=== PATIENT | female | born 1935 | race Caucasian/White ===

== ENCOUNTER 2018-11-07 09:21 | Inpatient (IN) | payer MEDICARE, OTHER ==
[2018-11-07] VITALS (8 sets, daily range): BP systolic 115–127; BP diastolic 44–79; BMI 17.8
[~2018-11-07] VITALS: Ht 152.4 cm; Wt 41.3 kg
[~2018-11-07 09:21] MED LIST: ADALAT PO; ASPIRIN EC81 M1 PO; CALTRATE 600 M600 M1 PO; HYDROCHLOROTHIA25 MG PO; MAG-OXIDE400 MG PO; VITAMIN D PO; ZOCOR20 MG PO
[2018-11-07 10:02] LABS: HEMATOCRIT 40.9 % (36.0-48.0); MCH 34.8 pg (26.0-34.0); MCHC 34.2 g/dL (31.0-37.0); MCV 101.7 fL (80.0-100.0); MEAN PLATELET VOLUME 10.1 fL (7.4-10.4); PLATELET COUNT 273 10x3/uL (130-400); RBC 4.02 10x6/uL (4.00-5.40); RDW 12.9 % (11.5-14.5); WBC 22.1 10x3/uL (4.8-10.8)
[2018-11-07 10:10] LABS: APTT 29.2 SECONDS (22.8-39.4); INR 1.02 (0.85-1.17); PROTIME 12.9 SECONDS (11.6-15.0)
[2018-11-07 10:17] LABS: LYMPHOCYTES 7 % (15-50); MONOCYTES 8 % (2-11); NEUTROPHILS 82 % (40-80); PLATELET ESTIMATE NORMAL
[2018-11-07 10:19] LABS: ALBUMIN 3.6 g/dL (3.4-5.0); ANION GAP 13.3 mmol/L (8-16); BILIRUBIN - TOTAL 0.55 mg/dL (0.2-1.3); CALCIUM 9.1 mg/dL (8.5-10.1); CARBON DIOXIDE 29.4 mmol/L (21.0-32.0); CREATININE - SERUM 0.9 mg/dL (0.6-1.3); POTASSIUM - SERUM 3.7 mmol/L (3.5-5.1)
[2018-11-07 10:41] LABS: APPEARANCE CLEAR (CLEAR); BILIRUBIN NEGATIVE (NEGATIVE); COLOR YELLOW (YELLOW); GLUCOSE NEGATIVE (NEGATIVE); KETONE NEGATIVE (NEGATIVE); NITRITE NEGATIVE (NEGATIVE); PROTEIN NEGATIVE (NEGATIVE); UROBILINOGEN NORMAL (NORMAL)
[2018-11-07 10:42] LABS: BACTERIA FEW /hpf (NONE SEEN); EPITHELIAL CELLS 0-5 /hpf (0-5); RED CELLS - URINE 0-5 /hpf (0-5); WHITE CELLS - URINE 0-5 /hpf (0-5)
--- NOTE | 2018-11-07 13:32 | MORECARE ---
CASE MANAGEMENT DISCHARGE SUMMARY PATIENT: ARIAS PEDRO MORIAH UNIT: [id number] ADM DATE: 11/07/18 AGE: 83 : 36 SEX: F ROOM/BED: D.2216 AUTHOR: LEROY,DOC PHYSICIAN: REFERRING PHYSICIAN: JESUS PRUITT MD DATE OF SERVICE: 11/07/18 Discharge Plan Patient Name: ARIAS PEDRO Facility: [facility]:[place] : 1935 Planned Disposition: Anticipated Discharge Date: 11/12/18 Discharge Date: Expected LOS: 5 Initial Reviewer: [email or web address] Initial Review Date: 11/07/2018 Generated: 11/07/18 2:32 pm DCP- Discharge Planning Updated by [email or web address]: Renea Cage on 11/07/18 12:[address] Patient Name: ARIAS PEDRO Admission Status: ER Accout number: [id number] Admission Date: 11-07-2018 : 1935 Admission Diagnosis: Attending: JESUS PRUITT Current LOS: 1 Anticipated DC Date: 11-12-2018 Planned Disposition: Primary Insurance: MEDICARE A & B Discharge Planning Comments: CM met with patient to complete initial dc planning assessment. CM educated patient on the CM role and verbal consent given by patient to complete assessment. Patient lives at home with her . She reports she is independent in her ADL's and IADL's. At discharge patient plans to return home with her and feels this is a safe discharge. CM discussed availability of home health, rehab services, and medical equipment. Patient denied known discharge needs at this time. CM will continue to follow and will assist as needed with dc plans/needs. Lead Sewage Plant Operator: Renea Cage RN, [facility] DCPIA - Discharge Planning Initial Assessment Updated by [email or web address]: Renea Cage on 11/07/18 1:31 pm * Is the patient Alert and Oriented? Yes * How many steps to enter\exit or inside your home? * PCP Dr. Pete * Pharmacy [facility] [address] * Preadmission Environment Home with Family * ADLs Independent * Equipment Walker * List name and contact numbers for known caregivers / representatives who currently or will assist patient after discharge: Vicente Pedro - spouse - [phone] * Verbal permission to speak to the caregivers and representatives has been obtained from the patient. Yes * Community resources currently utilized None * Additional services required to return to the preadmission environment? No * Can the patient safely return to the preadmission environment? Yes * Has this patient been hospitalized within the prior 30 days at any hospital? No Patient Name: ARIAS PEDRO Page 14815 at 1332 All edits/amendments must be made on the electronic document DICTATION DATE: 11/07/181331 CLIENT SERVICES ADMINISTRATOR: VIC 11/07/181331 RPT#: [id number] DC DATE: STATUS: ADM IN [facility] [address] [place] [address] END OF REPORT
--- NOTE | 2018-11-07 14:01 | NUR ---
NORMAL SALINE INFUSING ON TRANSFER TO OPERATING ROOM.
--- NOTE | 2018-11-07 20:00 | NUR ---
ALERT RESTING IN BED RESP UNLABORED DENIES PAIN AT THIS TIME BENITES CATH DRAING YELLOW URINE DRESSING TO LEFT HIP D/I CALL LIGHT IN REACH
[2018-11-08] VITALS: BP 126/52
[2018-11-08 00:02] VITALS: BP 136/72
[2018-11-08 05:07] LABS: BASOPHILS 0 % (0-2); EOSINOPHILS 0.4 % (0-7); IMMATURE GRANULOCYTES 0.1 % (0-5); LYMPHOCYTES 22.5 % (15-50); MCH 34.8 pg (26.0-34.0); MCHC 33.7 g/dL (31.0-37.0); MCV 103.4 fL (80.0-100.0); MEAN PLATELET VOLUME 9.6 fL (7.4-10.4); RDW 13.2 % (11.5-14.5)
[2018-11-08 05:20] LABS: HEMATOCRIT 27.6 % (36.0-48.0); HEMOGLOBIN 9.3 g/dL (12-16); PLATELET COUNT 176 10x3/uL (130-400); RBC 2.67 10x6/uL (4.00-5.40); WBC 7.3 10x3/uL (4.8-10.8)
[2018-11-08 05:36] LABS: CALC OSMOLALITY 276 mosm/kg (275-300); CALCIUM 7.3 mg/dL (8.5-10.1); CARBON DIOXIDE 29.6 mmol/L (21.0-32.0); CHLORIDE - SERUM 103 mmol/L (98-107); CREATININE - SERUM 0.7 mg/dL (0.6-1.3); GLUCOSE 92 mg/dL (74-106); POTASSIUM - SERUM 3.7 mmol/L (3.5-5.1); SODIUM 138 mmol/L (136-145); UREA NITROGEN 16 mg/dL (7-18); eGFR NON AFRICAN AMERICAN 85 mL/min (90-120)
--- NOTE | 2018-11-08 07:00 | NUR ---
BUILDING WRECKER COMPLETE. PT LYING IN BED. NO SIGNS OF DISTRESS. DENIES NEEEDS
[2018-11-08 09:18] VITALS: BP 136/51
[2018-11-08 11:52] VITALS: BP 140/60
--- NOTE | 2018-11-08 12:23 | NUR ---
PT LYING IN BED WITH FAMILY ON BEDSIDE, NO S/S OF DISTRESS, BED IN LOW POSITION, CL IN REACH, CONTINUE WITH PLAN OF CARE
[2018-11-08 12:48] VITALS: Ht 152.4 cm; Wt 41.3 kg
[2018-11-08 16:29] VITALS: BP 142/53
[2018-11-08 20:00] VITALS: BP 122/52
--- NOTE | 2018-11-08 20:00 | NUR ---
ASSESSMENT PER FLOWSHEET. IV PATENT RT ARM OF NS AT 100CC'S/HR SITE CLEAR. DRESSINGX2 TO LEFT HIP C/D/I. BENITES TO BEDSIDE DRAINAGE WITH YELLOW URINE.
--- NOTE | 2018-11-08 21:00 | NUR ---
MEDS PER MAR.
--- NOTE | 2018-11-09 | NUR ---
REPOSITIONED IN BED SR UP X2 CALL LIGHT WITHIN REACH.
--- NOTE | 2018-11-09 03:18 | NUR ---
C/O PAIN IN INCISIONAL AREA DOES NOT USUALLY TAKE MORPHINE REQUESTING TYLENOL. TYLENOL 650MG PO GIVEN FOR PAIN CONTROL. REPOSITIONED IN BED WITH CALL LIGHT WITHIN REACH.
[2018-11-09 04:00] VITALS: BP 110/52
--- NOTE | 2018-11-09 04:27 | NUR ---
EYES CLOSED RESPIRATIONS WITH EASE AND UNLABORED.
[2018-11-09 05:31] LABS: HEMATOCRIT 22.7 % (36.0-48.0); HEMOGLOBIN 7.8 g/dL (12-16); MCH 34.8 pg (26.0-34.0); MCHC 34.4 g/dL (31.0-37.0); RBC 2.24 10x6/uL (4.00-5.40); RDW 12.8 % (11.5-14.5); WBC 8.7 10x3/uL (4.8-10.8)
[2018-11-09 05:57] LABS: CALCIUM 7.5 mg/dL (8.5-10.1); CARBON DIOXIDE 28.5 mmol/L (21.0-32.0); CHLORIDE - SERUM 104 mmol/L (98-107); GLUCOSE 103 mg/dL (74-106); POTASSIUM - SERUM 3.3 mmol/L (3.5-5.1); SODIUM 138 mmol/L (136-145)
[2018-11-09 06:00] LABS: CALC OSMOLALITY 273 mosm/kg (275-300); CREATININE - SERUM 0.5 mg/dL (0.6-1.3); MCV 101.3 fL (80.0-100.0); PLATELET COUNT 139 10x3/uL (130-400); UREA NITROGEN 8 mg/dL (7-18); eGFR NON AFRICAN AMERICAN > 90 mL/min (90-120)
--- NOTE | 2018-11-09 07:45 | NUR ---
PATIENT IN BED WITH NO COMPLAINTS OR SIGNS OF DISTRESS. IV INTACT. EYES CLOSED RESTING QUIETLY. CALL LIGHT WITHIN REACH.
[2018-11-09 08:08] LABS: EOSINOPHILS 1 % (0-7); HYPOCHROMASIA OCC; LYMPHOCYTES 20 % (15-50); MONOCYTES 21 % (2-11); NEUTROPHILS 57 % (40-80); PLATELET ESTIMATE NORMAL
[2018-11-09 08:28] VITALS: BP 120/48
--- NOTE | 2018-11-09 11:19 | NUR ---
PT STATED SHE IS COUGHING UP YELLOW GUNK, ORDERED CHEST XRAY AND SPUTUM CULTURE
[2018-11-09 11:55] VITALS: BP 103/67
[2018-11-09 16:58] VITALS: BP 134/59
--- NOTE | 2018-11-09 18:54 | NUR ---
PT COMPLETED BLOOD TRANSFUSIONS WITH NO COMPLICATIONS, BED IN LOW POSITION, CL IN REACH PT DID GET UP TO CHAIR WITH PT. DISCONNECTED PT FROM IV, WILL CONTINUE WITH PLAN OF CARE
[2018-11-09 20:00] VITALS: BP 124/47
--- NOTE | 2018-11-09 20:00 | NUR ---
ASSESMENT PER FLOWSHEET. IV PATENT LT ARM OF NS AT 100CC'S/HR BENITES TO BEDSIDE DRAINAGE WITH YELLOW URINE. DRESSING TO LEFT HIP X2 C/D/I. O2 ON AT 2L/M PER NC. ESAU MAT ON SR UP X2 CALL LIGHT WITHIN REACH.
--- NOTE | 2018-11-09 21:00 | NUR ---
MEDS GIVEN PER MAR.
--- NOTE | 2018-11-09 22:30 | NUR ---
REPOSITIONED IN BED SR UPX2 CALL LIGHT WITHIN REACH DENIES NEEDS.
[2018-11-10] VITALS: BP 116/49
--- NOTE | 2018-11-10 | NUR ---
EYES CLOSED REPOSITIONED IN BED DENIES NEEDS.
--- NOTE | 2018-11-10 02:30 | NUR ---
RESING QUIETLY NO CHANGES IN ASSESSMENT.
[2018-11-10 04:00] VITALS: BP 131/60
[2018-11-10 06:06] LABS: CALC OSMOLALITY 282 mosm/kg (275-300); CALCIUM 7.6 mg/dL (8.5-10.1); CARBON DIOXIDE 31.4 mmol/L (21.0-32.0); CHLORIDE - SERUM 106 mmol/L (98-107); CREATININE - SERUM 0.5 mg/dL (0.6-1.3); GLUCOSE 110 mg/dL (74-106); SODIUM 142 mmol/L (136-145); UREA NITROGEN 9 mg/dL (7-18); eGFR NON AFRICAN AMERICAN > 90 mL/min (90-120)
[2018-11-10 06:20] LABS: BASOPHILS 0.1 % (0-2); EOSINOPHILS 1.1 % (0-7); IMMATURE GRANULOCYTES 0.4 % (0-5); LYMPHOCYTES 13.2 % (15-50); MCH 32.3 pg (26.0-34.0); MCHC 34.4 g/dL (31.0-37.0); MEAN PLATELET VOLUME 10.3 fL (7.4-10.4); MONOCYTES 16.5 % (2-11); NEUTROPHILS 68.7 % (40-80); PLATELET COUNT 120 10x3/uL (130-400); RDW 17.3 % (11.5-14.5); WBC 9.6 10x3/uL (4.8-10.8)
[2018-11-10 06:23] LABS: MCV 93.8 fL (80.0-100.0); RBC 3.41 10x6/uL (4.00-5.40)
--- NOTE | 2018-11-10 09:32 | NUR ---
PT ALERT X 4. BREATH SOUNDS CLEAR BILAT, 2L O2 PER NC. IV TO LEFT FOREARM, PATENT, DRESSING CLEAN DRY AND INTACT. BENITES IN PLACE, URINE YELLOW AND CLEAR. PT REPORTING SLIGHT DISCOMFORT TO BACK FROM BED, NO MEDS NEEDED AT THIS TIME. BED LOW, CALL LIGHT IN REACH. NO OTHER NEEDS AT THIS TIME.
[2018-11-10 10:04] VITALS: BP 126/54
--- NOTE | 2018-11-10 12:15 | NUR ---
Rehab Note- Acute Inpatient Rehab prescreen order received. Visited with the patient and her spouse. She would like a short stay, explained the difference in an acute inpatient facility and a SNF. Spoke with KIT Nielsen. Will accept the patient to [facility] Acute Inpatient Rehab when medically stable and ready for discharge from the acute hospital. WIll follow at this time. THank you for this referral! Nasrin Lenz RN Clinical Liaison, [facility] Rehab
[2018-11-10 17:34] VITALS: BP 143/63
[2018-11-10 20:54] VITALS: BP 127/48
[2018-11-11 06:41] LABS: CALC OSMOLALITY 277 mosm/kg (275-300); CALCIUM 8.1 mg/dL (8.5-10.1); CARBON DIOXIDE 31.2 mmol/L (21.0-32.0); CHLORIDE - SERUM 102 mmol/L (98-107); CREATININE - SERUM 0.6 mg/dL (0.6-1.3); GLUCOSE 101 mg/dL (74-106); POTASSIUM - SERUM 4.1 mmol/L (3.5-5.1); SODIUM 140 mmol/L (136-145); UREA NITROGEN 11 mg/dL (7-18); eGFR NON AFRICAN AMERICAN > 90 mL/min (90-120)
[2018-11-11 07:17] LABS: BASOPHILS 0 % (0-2); EOSINOPHILS 4.7 % (0-7); HEMATOCRIT 34.7 % (36.0-48.0); HEMOGLOBIN 11.7 g/dL (12-16); IMMATURE GRANULOCYTES 0.2 % (0-5); LYMPHOCYTES 16.7 % (15-50); MCH 32.6 pg (26.0-34.0); MCHC 33.7 g/dL (31.0-37.0); MEAN PLATELET VOLUME 10.8 fL (7.4-10.4); MONOCYTES 18.1 % (2-11); NEUTROPHILS 60.3 % (40-80); RBC 3.59 10x6/uL (4.00-5.40); RDW 16.4 % (11.5-14.5)
[2018-11-11 07:20] LABS: MCV 96.7 fL (80.0-100.0); PLATELET COUNT 166 10x3/uL (130-400)
[2018-11-11] MEDS ORDERED: NORCO 7.5/325 T1 TA1 PO (07:43)
--- NOTE | 2018-11-11 07:43 | MORECARE ---
CASE MANAGEMENT DISCHARGE SUMMARY PATIENT: ARIAS PEDRO MORIAH UNIT: [id number] ADM DATE: 11/07/18 AGE: 83 : 36 SEX: F ROOM/BED: D.2216 AUTHOR: LEROYDOC PHYSICIAN: REFERRING PHYSICIAN: JESUS PRUITT MD DATE OF SERVICE: 11/11/18 Discharge Plan Patient Name: ARIAS PEDRO Facility: [facility]:[place] : 1935 Planned Disposition: Anticipated Discharge Date: 11/12/18 Discharge Date: Expected LOS: 5 Initial Reviewer: [email or web address] Initial Review Date: 11/07/2018 Generated: 11/11/18 8:43 am DCP- Discharge Planning Updated by [email or web address]: Renea Cage on 11/07/18 12:[address] Patient Name: ARIAS PEDRO Admission Status: ER Accout number: [id number] Admission Date: 11-07-2018 : 1935 Admission Diagnosis: Attending: JESUS PRUITT Current LOS: 1 Anticipated DC Date: 11-12-2018 Planned Disposition: Primary Insurance: MEDICARE A & B Discharge Planning Comments: CM met with patient to complete initial dc planning assessment. CM educated patient on the CM role and verbal consent given by patient to complete assessment. Patient lives at home with her . She reports she is independent in her ADL's and IADL's. At discharge patient plans to return home with her and feels this is a safe discharge. CM discussed availability of home health, rehab services, and medical equipment. Patient denied known discharge needs at this time. CM will continue to follow and will assist as needed with dc plans/needs. Financial Planning Adviser: Renea Cage RN, [facility] DCPIA - Discharge Planning Initial Assessment Updated by [email or web address]: Renea Cage on 11/07/18 1:31 pm * Is the patient Alert and Oriented? Yes * How many steps to enter\exit or inside your home? * PCP Dr. Pete * Pharmacy [facility] [address] * Preadmission Environment Home with Family * ADLs Independent * Equipment Walker * List name and contact numbers for known caregivers / representatives who currently or will assist patient after discharge: Vicente Pedro - spouse - [phone] * Verbal permission to speak to the caregivers and representatives has been obtained from the patient. Yes * Community resources currently utilized None * Additional services required to return to the preadmission environment? No * Can the patient safely return to the preadmission environment? Yes * Has this patient been hospitalized within the prior 30 days at any hospital? No Last DP export: 11/07/18 12:32 p Patient Name: ARIAS PEDRO Page [phone] at 0743 All edits/amendments must be made on the electronic document DICTATION DATE: 11/11/18741 DULL COAT MILL OPERATOR: DM 11/11/18741 RPT#: [id number] DC DATE: STATUS: ADM IN [facility] [address] [place] [address] END OF REPORT
--- NOTE | 2018-11-11 07:50 | MORECARE ---
CASE MANAGEMENT DISCHARGE SUMMARY PATIENT: ARIAS PEDRO MORIAH UNIT: [id number] ADM DATE: 11/07/18 AGE: 83 : 36 SEX: F ROOM/BED: D.2216 AUTHOR: LEROYDOC PHYSICIAN: REFERRING PHYSICIAN: JESUS PRUITT MD DATE OF SERVICE: 11/11/18 Discharge Plan Patient Name: ARIAS PEDRO Facility: [facility]:[place] : 1935 Planned Disposition: Anticipated Discharge Date: 11/12/18 Discharge Date: Expected LOS: 5 Initial Reviewer: [email or web address] Initial Review Date: 11/07/2018 Generated: 11/11/18 8:50 am DCP- Discharge Planning Updated by [email or web address]: Renea Cage on 11/07/18 12:[address] Patient Name: ARIAS PEDRO Admission Status: ER Accout number: [id number] Admission Date: 11-07-2018 : 1935 Admission Diagnosis: Attending: JESUS PRUITT Current LOS: 1 Anticipated DC Date: 11-12-2018 Planned Disposition: Primary Insurance: MEDICARE A & B Discharge Planning Comments: CM met with patient to complete initial dc planning assessment. CM educated patient on the CM role and verbal consent given by patient to complete assessment. Patient lives at home with her . She reports she is independent in her ADL's and IADL's. At discharge patient plans to return home with her and feels this is a safe discharge. CM discussed availability of home health, rehab services, and medical equipment. Patient denied known discharge needs at this time. CM will continue to follow and will assist as needed with dc plans/needs. Registered Nurse Practitioner: Renea Cage RN, [facility] DCPIA - Discharge Planning Initial Assessment Updated by [email or web address]: Renea Cage on 11/07/18 1:31 pm * Is the patient Alert and Oriented? Yes * How many steps to enter\exit or inside your home? * PCP Dr. Pete * Pharmacy [facility] [address] * Preadmission Environment Home with Family * ADLs Independent * Equipment Walker * List name and contact numbers for known caregivers / representatives who currently or will assist patient after discharge: Vicente Pedro - spouse - [phone] * Verbal permission to speak to the caregivers and representatives has been obtained from the patient. Yes * Community resources currently utilized None * Additional services required to return to the preadmission environment? No * Can the patient safely return to the preadmission environment? Yes * Has this patient been hospitalized within the prior 30 days at any hospital? No External Providers External Provider: [facility] Next Contact Date: Service Request Date: Service Type: Resolution: Reviewer: Comments: Last DP export: 11/11/18 6:43 a Patient Name: ARIAS PEDRO Page [phone] at 0750 All edits/amendments must be made on the electronic document DICTATION DATE: 11/11/18748 MEDICAL CLERICAL ASSISTANT: VIC 11/11/1849 RPT#: [id number] DC DATE: STATUS: ADM IN [facility] [address] [place] [address] END OF REPORT
--- NOTE | 2018-11-11 07:57 | MORECARE ---
CASE MANAGEMENT DISCHARGE SUMMARY PATIENT: ARIAS PEDROU UNIT: [id number] ADM DATE: 11/07/18 AGE: 83 : 36 SEX: F ROOM/BED: D.2216 AUTHOR: LEROY,DOC PHYSICIAN: REFERRING PHYSICIAN: JESUS PRUITT MD DATE OF SERVICE: 11/11/18 Discharge Plan Patient Name: ARIAS PEDRO Facility: [facility]:[place] : 1935 Planned Disposition: Anticipated Discharge Date: 11/12/18 Discharge Date: Expected LOS: 5 Initial Reviewer: [email or web address] Initial Review Date: 11/07/2018 Generated: 11/11/18 8:56 am Comments DCP- Discharge Planning Updated by [email or web address]: Kate Pressley on 11/11/18 6:[address] Met with patient this am and she would like to go to [facility], she does NOT want to go to inpatient rehab. IMM served and explained. BETO signed and placed in chart. I sent referral to [facility]. Will wait for acceptance. CM will continue to follow and assist with dc planning as needed DCP- Discharge Planning Updated by [email or web address]: Renea Cage on 11/07/18 12:[address] Patient Name: ARIAS PEDRO Admission Status: ER Accout number: [id number] Admission Date: 11-07-2018 : 1935 Admission Diagnosis: Attending: JESUS PRUITT Current LOS: 1 Anticipated DC Date: 11-12-2018 Planned Disposition: Primary Insurance: MEDICARE A & B Discharge Planning Comments: CM met with patient to complete initial dc planning assessment. CM educated patient on the CM role and verbal consent given by patient to complete assessment. Patient lives at home with her . She reports she is independent in her ADL's and IADL's. At discharge patient plans to return home with her and feels this is a safe discharge. CM discussed availability of home health, rehab services, and medical equipment. Patient denied known discharge needs at this time. CM will continue to follow and will assist as needed with dc plans/needs. Marine Railway Operator: Renea Cage RN, [facility] DCPIA - Discharge Planning Initial Assessment Updated by [email or web address]: Renea Cage on 11/07/18 1:31 pm * Is the patient Alert and Oriented? Yes * How many steps to enter\exit or inside your home? * PCP Dr. Pete * [facility] [address] * Preadmission Environment Home with Family * ADLs Independent * Equipment Walker * List name and contact numbers for known caregivers / representatives who currently or will assist patient after discharge: Vicente Pedro - [facility] - [phone] * Verbal permission to speak to the caregivers and representatives has been obtained from the patient. Yes * Community resources currently utilized None * Additional services required to return to the preadmission environment? No * Can the patient safely return to the preadmission environment? Yes * Has this patient been hospitalized within the prior 30 days at any hospital? No Coverage Notice Reviewer: [email or web address] Misa Pressley Notice Issued Date-Time: 11/11/2018 7:30 Notice Type: IM Discharge Notice Notice Delivered To: Patient Relationship to Patient: Management Internship Name: Delivery Method: HAND - Hand Delivered Sierra Days: Prior Verbal Notification: Recipient Understood Notice: Yes Recipient Signature: Yes Med Rec Note Co-signed by Attending: Coverage Notice Comment: Last DP export: 11/11/18 6:50 a Patient Name: ARIAS PEDRO Page [phone] at 0757 All edits/amendments must be made on the electronic document DICTATION DATE: 11/11/186 ESTHETICIAN MAKEUP ARTIST: VIC 11/11/18 0756 RPT#: [id number] DC DATE: STATUS: ADM IN [facility] [address] [place] [address] END OF REPORT
[2018-11-11 08:51] VITALS: BP 140/63
--- NOTE | 2018-11-11 12:14 | NUR ---
REMOVED PT BENITES CATHETER AND IV, CATHER FOR IV INTACT, PT IS SITTING UP IN CHAIR JIMMY NAVARRETE ASSISTING PT WITH PERSONAL CARE, PT TO BE DC TO [facility] TODAY, NO OTHER NEEDS VOICED, CONTINUE [facility] PLAN OF CARE
[2018-11-11 13:03] VITALS: BP 141/60
[2018-11-11] MEDS ORDERED: ASPIRIN325 MG PO (13:32)
[2018-11-11] MEDS ORDERED: TESSALON PERLE100 MG PO (13:32)
[2018-11-11] MEDS ORDERED: MUCINEX600 MG PO (13:32)
--- NOTE | 2018-11-11 13:42 | NUR ---
CALLED [facility] AND GAVE REPORT TO JACK, WENT OVER DC PAPERS AND FOLLOW UP WITH PT AND SPOUSE, ALL QUESTIONS ANSWERED NO OTHER NEEDS VOICED
--- NOTE | 2018-11-11 13:58 | MORECARE ---
CASE MANAGEMENT DISCHARGE SUMMARY PATIENT: ARIAS PEDROU UNIT: [id number] ADM DATE: 11/07/18 AGE: 83 : 36 SEX: F ROOM/BED: D.2216 AUTHOR: LEROYDOC PHYSICIAN: REFERRING PHYSICIAN: JESUS PRUITT MD DATE OF SERVICE: 11/11/18 Discharge Plan Patient Name: ARIAS PEDRO Facility: [facility]:[place] : 1935 Planned Disposition: Anticipated Discharge Date: 11/12/18 Discharge Date: Expected LOS: 5 Initial Reviewer: [email or web address] Initial Review Date: 11/07/2018 Generated: 11/11/18 2:58 pm Comments DCP- Discharge Planning Updated by [email or web address]: Kate Pressley on 11/11/18 12:[address] [facility] will be picking patient up today at 1430. She will be discharging to a skilled med. at bedside is aware. CM will continue to follow and assist with DC planning as needed DCP- Discharge Planning Updated by [id number]: Kate Pressley on 11/11/18 6:[address] Met with patient this am and she would like to go to [facility], she does NOT want to go to inpatient rehab. IMM served and explained. BETO signed and placed in chart. I sent referral to [facility]. Will wait for acceptance. CM will continue to follow and assist with dc planning as needed DCP- Discharge Planning Updated by [email or web address]: Renea Cage on 11/07/18 12:[address] Patient Name: ARIAS PEDRO Admission Status: ER Accout number: [id number] Admission Date: 11-07-2018 : 1935 Admission Diagnosis: Attending: JESUS PRUITT Current LOS: 1 Anticipated DC Date: 11-12-2018 Planned Disposition: Primary Insurance: MEDICARE A & B Discharge Planning Comments: CM met with patient to complete initial dc planning assessment. CM educated patient on the CM role and verbal consent given by patient to complete assessment. Patient lives at home with her . She reports she is independent in her ADL's and IADL's. At discharge patient plans to return home with her and feels this is a safe discharge. CM discussed availability of home health, rehab services, and medical equipment. Patient denied known discharge needs at this time. CM will continue to follow and will assist as needed with dc plans/needs. New Patient Escort: Renea Cage RN, [facility] DCPIA - Discharge Planning Initial Assessment Updated by [email or web address]: Renea Cage on 11/07/18 1:31 pm * Is the patient Alert and Oriented? Yes * How many steps to enter\exit or inside your home? * PCP Dr. Pete * Pharmacy [facility] [address] * Preadmission Environment Home with Family * ADLs Independent * Equipment Walker * List name and contact numbers for known caregivers / representatives who currently or will assist patient after discharge: Vicente Pedro - spouse - [phone] * Verbal permission to speak to the caregivers and representatives has been obtained from the patient. Yes * Community resources currently utilized None * Additional services required to return to the preadmission environment? No * Can the patient safely return to the preadmission environment? Yes * Has this patient been hospitalized within the prior 30 days at any hospital? No Coverage Notice Reviewer: [email or web address] Misa Pressley Notice Issued Date-Time: 11/11/2018 7:30 Notice Type: IM Discharge Notice Notice Delivered To: Patient Relationship to Patient: Cuff Presser Name: Delivery Method: HAND - Hand Delivered Sierra Days: Prior Verbal Notification: Recipient Understood Notice: Yes Recipient Signature: Yes Med Rec Note Co-signed by Attending: Coverage Notice Comment: Last DP export: 11/11/18 6:57 a Patient Name: ARIAS PEDRO Page [phone] at 1358 All edits/amendments must be made on the electronic document DICTATION DATE: 11/11/18 1358 EQUITY RESEARCH ANALYST: VIC 11/11/18 1358 RPT#: [id number] DC DATE: STATUS: ADM IN [facility] [address] [place] [address] END OF REPORT
--- NOTE | 2018-11-12 11:49 | MORECARE ---
CASE MANAGEMENT DISCHARGE SUMMARY PATIENT: ARIAS PEDROU UNIT: [id number] ADM DATE: 11/07/18 AGE: 83 : 36 SEX: F ROOM/BED: D.2216 AUTHOR: JACKIE HARPER PHYSICIAN: REFERRING PHYSICIAN: JESUS PRUITT MD DATE OF SERVICE: 11/12/18 Discharge Plan Patient Name: ARIAS PEDRO Facility: [facility]:[place] : 1935 Planned Disposition: Anticipated Discharge Date: 11/12/18 Discharge Date: 11/11/2018 Expected LOS: 5 Initial Reviewer: [email or web address] Initial Review Date: 11/07/2018 Generated: 11/12/18 12:48 pm Comments DCP- Discharge Planning Updated by [email or web address]: Kate Pressley on 11/11/18 12:[address] [facility] will be picking patient up today at 1430. She will be discharging to a skilled med. at bedside is aware. CM will continue to follow and assist with DC planning as needed DCP- Discharge Planning Updated by [email or web address]: Kate Pressley on 11/11/18 6:[address] Met with patient this am and she would like to go to [facility], she does NOT want to go to inpatient rehab. IMM served and explained. BETO signed and placed in chart. I sent referral to [facility]. Will wait for acceptance. CM will continue to follow and assist with dc planning as needed DCP- Discharge Planning Updated by [email or web address]: Renea Cage on 11/07/18 12:[address] Patient Name: ARIAS PEDRO Admission Status: ER Accout number: [id number] Admission Date: 11-07-2018 : 1935 Admission Diagnosis: Attending: JESUS PRUITT Current LOS: 1 Anticipated DC Date: 11-12-2018 Planned Disposition: Primary Insurance: MEDICARE A & B Discharge Planning Comments: CM met with patient to complete initial dc planning assessment. CM educated patient on the CM role and verbal consent given by patient to complete assessment. Patient lives at home with her . She reports she is independent in her ADL's and IADL's. At discharge patient plans to return home with her and feels this is a safe discharge. CM discussed availability of home health, rehab services, and medical equipment. Patient denied known discharge needs at this time. CM will continue to follow and will assist as needed with dc plans/needs. Lead Generator: Renea Cage RN, [facility] DCPIA - Discharge Planning Initial Assessment Updated by [email or web address]: Renea Cage on 11/07/18 1:31 pm * Is the patient Alert and Oriented? Yes * How many steps to enter\exit or inside your home? * PCP Dr. Pete * Pharmacy [facility] [address] * Preadmission Environment Home with Family * ADLs Independent * Equipment Walker * List name and contact numbers for known caregivers / representatives who currently or will assist patient after discharge: Vicente Pedro - spouse - [phone] * Verbal permission to speak to the caregivers and representatives has been obtained from the patient. Yes * Community resources currently utilized None * Additional services required to return to the preadmission environment? No * Can the patient safely return to the preadmission environment? Yes * Has this patient been hospitalized within the prior 30 days at any hospital? No Coverage Notice Reviewer: [email or web address] Misa Pressley Notice Issued Date-Time: 11/11/2018 7:30 Notice Type: IM Discharge Notice Notice Delivered To: Patient Relationship to Patient: Liquefied Natural Gas Plant Operator Name: Delivery Method: HAND - Hand Delivered Sierra Days: Prior Verbal Notification: Recipient Understood Notice: Yes Recipient Signature: Yes Med Rec Note Co-signed by Attending: Coverage Notice Comment: Last DP export: 11/11/18 12:58 p Patient Name: ARIAS PEDRO Page 19829 at 1149 All edits/amendments must be made on the electronic document DICTATION DATE: 11/12/18 1148 COMMANDER INTERNAL AFFAIRS: VIC 11/12/18 1148 RPT#: [id number] DC DATE:11/11/18 STATUS: DIS IN [facility] [address] [place] [address] END OF REPORT
== END 2018-11-11 14:52 | DRG 481 ==
LOC: D.ER 09:21 → D.MS 10:03 → D.EDHOLD 10:03 → D.MS 13:14
PROVIDERS: Emergency Medicine; Orthopaedic Surgery; ADMIT Internal Medicine Nephrology
PROC: 0QH936Z Insertion of Intramedullary Internal Fixation Device into Left Femoral Shaft, Percutaneous Approach (ICD-10-PCS; principal; 2018-11-07 13:41)
DX: S72.142A Displaced intertrochanteric fracture of left femur, initial encounter for closed fracture (principal); N17.9 Acute kidney failure, unspecified; N39.0 Urinary tract infection, site not specified; D62 Acute posthemorrhagic anemia; W19.XXXA Unspecified fall, initial encounter; Y92.000 Kitchen of unspecified non-institutional (private) residence as the place of occurrence of the external cause; R42 Dizziness and giddiness

== ENCOUNTER → 2019-05-23 18:32 | Outpatient (CLI) | payer MEDICARE, OTHER ==
[2018-11-08 12:48] VITALS: BMI 17.7
[~2019-05-23 18:32] MED LIST changes: +ASPIRIN325 MG PO; +MUCINEX600 MG PO; +NORCO 7.5/325 T1 TA1 PO; +TESSALON PERLE100 MG PO
== END | disposition home or self-care (01) ==
LOC: D.LABREF 18:32
PROVIDERS: ATTEND Orthopaedic Surgery
DX: M16.12 Unilateral primary osteoarthritis, left hip (principal)

== ENCOUNTER 2019-05-25 08:30 | Inpatient (IN) | payer MEDICARE, OTHER ==
[~2019-05-25] VITALS: Ht 149.9 cm; Wt 47.2 kg
[2019-05-31] MEDS ORDERED: OS-CAL500 MG PO (17:03)
[2019-05-31] MEDS ORDERED: PROCARDIA XL30 MG PO (17:05)
[2019-05-31] MEDS ORDERED: BAYER CHEWABLE81 MG PO (17:06)
[2019-06-01 12:01] LABS: BASOPHILS 0.1 % (0-2); EOSINOPHILS 1.2 % (0-7); HEMATOCRIT 41.7 % (36.0-48.0); HEMOGLOBIN 14.6 g/dL (12-16); IMMATURE GRANULOCYTES 0.1 % (0-5); LYMPHOCYTES 21.6 % (15-50); MEAN PLATELET VOLUME 10.3 fL (7.4-10.4); RDW 12.5 % (11.5-14.5); WBC 8.3 10x3/uL (4.8-10.8)
[2019-06-01 12:11] LABS: APTT 39.3 SECONDS (22.8-39.4); INR 1.03 (0.85-1.17)
[2019-06-01 12:16] LABS: PLATELET COUNT 286 10x3/uL (130-400)
[2019-06-01 12:17] LABS: ANION GAP 12.5 mmol/L (8-16); CALCIUM 10.1 mg/dL (8.5-10.1); CARBON DIOXIDE 34.2 mmol/L (21.0-32.0); CREATININE - SERUM 0.8 mg/dL (0.6-1.3)
[2019-06-01 12:32] LABS: POTASSIUM - SERUM 2.7 mmol/L (3.5-5.1)
[2019-06-01 12:55] LABS: APPEARANCE SL CLDY (CLEAR); BACTERIA MANY /hpf (NONE SEEN); BILIRUBIN NEGATIVE (NEGATIVE); COLOR DK YELLOW (YELLOW); EPITHELIAL CELLS 0-5 /hpf (0-5); GLUCOSE NEGATIVE (NEGATIVE); KETONE NEGATIVE (NEGATIVE); NITRITE POSITIVE (NEGATIVE); PROTEIN TRACE mg/dL (NEGATIVE); RED CELLS - URINE OCC /hpf (0-5); SPECIFIC GRAVITY 1.015 (1.005-1.020)
[2019-06-01 12:56] LABS: HYALINE CAST OCC /lpf (NONE SEEN); MUCUS <1+ /lpf (NONE SEEN)
[2019-06-08] VITALS (11 sets, daily range): BP systolic 103–138; BP diastolic 39–64; BMI 20.4; BMI 21.0
[2019-06-08] MEDS ORDERED: K-TAB10 MEQ PO (10:27)
[2019-06-09] VITALS: BP 130/58
[2019-06-09 04:00] VITALS: BP 127/56
[2019-06-09 06:05] LABS: BASOPHILS 0.1 % (0-2); EOSINOPHILS 0 % (0-7); HEMATOCRIT 29.5 % (36.0-48.0); HEMOGLOBIN 10.1 g/dL (12-16); IMMATURE GRANULOCYTES 0.2 % (0-5); LYMPHOCYTES 5.7 % (15-50); MCH 33.6 pg (26.0-34.0); MCHC 34.2 g/dL (31.0-37.0); MEAN PLATELET VOLUME 10.4 fL (7.4-10.4); MONOCYTES 6.8 % (2-11); NEUTROPHILS 87.2 % (40-80); RBC 3.01 10x6/uL (4.00-5.40); RDW 12.7 % (11.5-14.5); WBC 10.1 10x3/uL (4.8-10.8)
[2019-06-09 06:12] LABS: PLATELET COUNT 177 10x3/uL (130-400)
[2019-06-09 06:26] LABS: BILIRUBIN - TOTAL 0.4 mg/dL (0.2-1.3); CALCIUM 8.2 mg/dL (8.5-10.1); CREATININE - SERUM 0.8 mg/dL (0.6-1.3); MAGNESIUM - SERUM 1.6 mg/dL (1.8-2.4); PROTEIN - SERUM 5.5 g/dL (6.4-8.2)
[2019-06-09 08:38] VITALS: BP 122/54
[2019-06-09 11:19] VITALS: Ht 149.9 cm; Wt 47.2 kg
[2019-06-09 11:58] VITALS: BP 97/40
[2019-06-09 16:34] VITALS: BP 124/52
[2019-06-09 20:00] VITALS: BP 112/47
[2019-06-10] VITALS: BP 108/46
[2019-06-10 04:00] VITALS: BP 111/53
[2019-06-10 06:38] LABS: BASOPHILS 0.1 % (0-2); EOSINOPHILS 1.6 % (0-7); HEMOGLOBIN 8.8 g/dL (12-16); IMMATURE GRANULOCYTES 0.3 % (0-5); LYMPHOCYTES 17.1 % (15-50); MCHC 33.8 g/dL (31.0-37.0); MEAN PLATELET VOLUME 10.1 fL (7.4-10.4); MONOCYTES 13.7 % (2-11); NEUTROPHILS 67.2 % (40-80); PLATELET COUNT 164 10x3/uL (130-400); RBC 2.59 10x6/uL (4.00-5.40); RDW 13.3 % (11.5-14.5)
[2019-06-10 06:45] LABS: WBC 7.5 10x3/uL (4.8-10.8)
[2019-06-10 06:46] LABS: MCV 100.4 fL (80.0-100.0)
[2019-06-10 07:03] LABS: ALBUMIN 2.5 g/dL (3.4-5.0); BILIRUBIN - TOTAL 0.18 mg/dL (0.2-1.3); CALCIUM 8.2 mg/dL (8.5-10.1); CARBON DIOXIDE 32.2 mmol/L (21.0-32.0); MAGNESIUM - SERUM 1.7 mg/dL (1.8-2.4); POTASSIUM - SERUM 4.2 mmol/L (3.5-5.1); PROTEIN - SERUM 5.4 g/dL (6.4-8.2)
[2019-06-10 08:44] VITALS: BP 122/54
[2019-06-10 13:32] VITALS: BP 130/57
[2019-06-10 17:25] VITALS: BP 120/53
[2019-06-10 20:00] VITALS: BP 133/60
[2019-06-11] VITALS: BP 114/50
[2019-06-11 04:50] VITALS: BP 131/59
[2019-06-11 05:24] LABS: BASOPHILS 0.1 % (0-2); EOSINOPHILS 1.8 % (0-7); HEMATOCRIT 28.4 % (36.0-48.0); HEMOGLOBIN 9.4 g/dL (12-16); IMMATURE GRANULOCYTES 0.2 % (0-5); LYMPHOCYTES 18.2 % (15-50); MCH 33.5 pg (26.0-34.0); MCHC 33.1 g/dL (31.0-37.0); MCV 101.1 fL (80.0-100.0); MEAN PLATELET VOLUME 10.4 fL (7.4-10.4); MONOCYTES 14.4 % (2-11); NEUTROPHILS 65.3 % (40-80); PLATELET COUNT 179 10x3/uL (130-400); RBC 2.81 10x6/uL (4.00-5.40); RDW 13.2 % (11.5-14.5)
[2019-06-11 05:58] LABS: ALBUMIN 2.5 g/dL (3.4-5.0); ANION GAP 9.2 mmol/L (8-16); BILIRUBIN - TOTAL 0.29 mg/dL (0.2-1.3); CALCIUM 8.3 mg/dL (8.5-10.1); CARBON DIOXIDE 30.9 mmol/L (21.0-32.0); CREATININE - SERUM 0.8 mg/dL (0.6-1.3); MAGNESIUM - SERUM 1.7 mg/dL (1.8-2.4); POTASSIUM - SERUM 4.1 mmol/L (3.5-5.1)
[2019-06-11 08:59] VITALS: BP 128/58
[2019-06-11 14:37] VITALS: BP 126/57
[2019-06-11 16:49] VITALS: BP 124/56
[2019-06-11 19:50] VITALS: BP 126/60
[2019-06-12] VITALS: BP 92/46
[2019-06-12 04:00] VITALS: BP 114/69
[2019-06-12 06:29] LABS: BASOPHILS 0.2 % (0-2); EOSINOPHILS 2.1 % (0-7); HEMATOCRIT 24.2 % (36.0-48.0); HEMOGLOBIN 8.1 g/dL (12-16); IMMATURE GRANULOCYTES 0.3 % (0-5); LYMPHOCYTES 20.5 % (15-50); MCH 33.2 pg (26.0-34.0); MCHC 33.5 g/dL (31.0-37.0); MCV 99.2 fL (80.0-100.0); MEAN PLATELET VOLUME 9.8 fL (7.4-10.4); MONOCYTES 13.7 % (2-11); NEUTROPHILS 63.2 % (40-80); PLATELET COUNT 172 10x3/uL (130-400); RBC 2.44 10x6/uL (4.00-5.40); RDW 13.1 % (11.5-14.5)
[2019-06-12 06:34] LABS: WBC 6.6 10x3/uL (4.8-10.8)
[2019-06-12 06:46] LABS: ALBUMIN 2.3 g/dL (3.4-5.0); ALKALINE PHOSPHATASE 65 U/L (46-116); ALT (SGPT) 19 U/L (10-68); BILIRUBIN - TOTAL 0.42 mg/dL (0.2-1.3); CALC OSMOLALITY 276 mosm/kg (275-300); CALCIUM 8.1 mg/dL (8.5-10.1); CARBON DIOXIDE 31.2 mmol/L (21.0-32.0); CHLORIDE - SERUM 104 mmol/L (98-107); CREATININE - SERUM 0.6 mg/dL (0.6-1.3); GLUCOSE 101 mg/dL (74-106); MAGNESIUM - SERUM 1.9 mg/dL (1.8-2.4); POTASSIUM - SERUM 3.7 mmol/L (3.5-5.1); PROTEIN - SERUM 5.4 g/dL (6.4-8.2); SODIUM 139 mmol/L (136-145); eGFR NON AFRICAN AMERICAN > 90 mL/min (90-120)
[2019-06-12 06:47] LABS: UREA NITROGEN 11 mg/dL (7-18)
[2019-06-12 07:14] VITALS: BP 116/53
--- NOTE | 2019-06-12 17:57 | MORECARE ---
CASE MANAGEMENT DISCHARGE SUMMARY PATIENT: ARIAS PEDRO MORIAH UNIT: [id number] ADM DATE: 06/08/19 AGE: 84 : 36 SEX: F ROOM/BED: D.2204 AUTHOR: JACKIE HARPER PHYSICIAN: REFERRING PHYSICIAN: LEXA PALMER MD DATE OF SERVICE: 06/12/19 Discharge Plan Patient Name: ARIAS PEDRO [facility] [facility] 1935 Planned Disposition: Home with Home Health Anticipated Discharge Date: Discharge Date: Expected LOS: Initial Reviewer: [email or web address] Initial Review Date: 06/08/2019 Generated: 06/12/19 6:56 pm DCPIA - Discharge Planning Initial Assessment Updated by [id number]: Deborah Chilel on 06/12/19 5:54 pm * Is the patient Alert and Oriented? Yes * How many steps to enter\exit or inside your home? 2 W/ RAIL * PCP DR CARRIE FISH * Pharmacy [facility] [address] * Preadmission Environment Home with Family * ADLs Independent * Equipment Rolling Walker * Other Equipment SHOWER BENCH * List name and contact numbers for known caregivers / representatives who currently or will assist patient after discharge: DORITA PEDRO- [facility]- [phone] * Verbal permission to speak to the caregivers and representatives has been obtained from the patient. No * Community resources currently utilized None * Additional services required to return to the preadmission environment? Yes * Can the patient safely return to the preadmission environment? Yes * Has this patient been hospitalized within the prior 30 days at any hospital? No Patient Name: ARIAS PEDRO Page [id number] at 1757 All edits/amendments must be made on the electronic document DICTATION DATE: 06/12/191755 MAINTENANCE DATA ANALYST: VIC 06/12/191755 RPT#: [id number] DC DATE: STATUS: ADM IN [facility] [address] [place] [address] END OF REPORT
--- NOTE | 2019-06-12 18:09 | MORECARE ---
CASE MANAGEMENT DISCHARGE SUMMARY PATIENT: ARIAS PEDRO UNIT: [id number] ADM DATE: 06/08/19 AGE: 84 : 36 SEX: F ROOM/BED: D.2204 AUTHOR: JACKIE HARPER PHYSICIAN: REFERRING PHYSICIAN: LEXA PALMER MD DATE OF SERVICE: 06/12/19 Discharge Plan Patient Name: ARIAS PEDRO Facility: [facility]:[place] : 1935 Planned Disposition: Home with Home Health Anticipated Discharge Date: Discharge Date: Expected LOS: Initial Reviewer: [email or web address] Initial Review Date: 06/08/2019 Generated: 06/12/19 7:09 pm Comments DCP- Discharge Planning Updated by [email or web address]: Deborah Chilel on 06/12/19 5:[address] CM MET WITH THE PATIENT AT THE BEDSIDE. EXPLAINED MY ROLE AND RECEIVED PERMISSION TO PROCEED W/ ASSESSMENT. CM DISCUSSED OPTIONS AT DISCHARGE. THE PATIENT STATES HER PLAN WAS TO RETURN TO HOME W/ "[facility]". SHE IS . HER DOES THE COOKING. SHE DOES NOT UTILIZE ANY COMMUNITY SERVICES. SHE HAS 2 STEPS TO ENTER HER HOME W/ RAILING. SHE HAS A WALKER AND SHOWER BENCH. SHE WOULD LIKE A RAISED TOILET SEAT. PCP- [facility]- RECEIVES MEDS FROM THE [employer] [facility] AND SHORT TERM MEDS FROM [facility] [address]. HER WILL PROVIDE TRANSPORTATION TO HOME. PATIENT HAS NASAL OXYGEN AT 2/L. WILL NEED TO OBTAIN ROOM AIR SAT. PATIENT AMBULATED 6 FEET W/ 30% ASSIST THIS PM W/ PHYSICAL THERAPY. DCPIA - Discharge Planning Initial Assessment Updated by [email or web address]: Deborah Chilel on 06/12/19 5:54 pm * Is the patient Alert and Oriented? Yes * How many steps to enter\\exit or inside your home? 2 W/ RAIL * PCP DR CARRIE FISH * Pharm[facility] [address] * Preadmission Environment Home with Family * ADLs Independent * Equipment Rolling Walker * Other Equipment SHOWER BENCH * List name and contact numbers for known caregivers / representatives who currently or will assist patient after discharge: DORITA PEDRO- - [phone] * Verbal permission to speak to the caregivers and representatives has been obtained from the patient. No * Community resources currently utilized None * Additional services required to return to the preadmission environment? Yes * Can the patient safely return to the preadmission environment? Yes * Has this patient been hospitalized within the prior 30 days at any hospital? No Last DP export: 06/12/19 4:57 p Patient Name: ARIAS PEDRO Page 38912 at 1809 All edits/amendments must be made on the electronic document DICTATION DATE: 06/12/191808 PATROL JUDGE: VIC 06/12/191808 RPT#: [id number] DC DATE: STATUS: ADM IN [facility] [address] [place] [address] END OF REPORT
[2019-06-12 18:26] VITALS: BP 130/56
[2019-06-12 20:00] VITALS: BP 122/62
[2019-06-13] VITALS: BP 110/54
[2019-06-13 04:00] VITALS: BP 141/66
[2019-06-13 06:16] LABS: BASOPHILS 0.1 % (0-2); EOSINOPHILS 2.8 % (0-7); HEMATOCRIT 28.3 % (36.0-48.0); HEMOGLOBIN 9.5 g/dL (12-16); IMMATURE GRANULOCYTES 0.3 % (0-5); LYMPHOCYTES 16.2 % (15-50); MCH 32.3 pg (26.0-34.0); MCHC 33.6 g/dL (31.0-37.0); MONOCYTES 14.2 % (2-11); NEUTROPHILS 66.4 % (40-80); PLATELET COUNT 194 10x3/uL (130-400); RDW 15.1 % (11.5-14.5)
[2019-06-13 06:27] LABS: MCV 96.3 fL (80.0-100.0); RBC 2.94 10x6/uL (4.00-5.40)
[2019-06-13 06:51] LABS: ALBUMIN 2.2 g/dL (3.4-5.0); ALKALINE PHOSPHATASE 71 U/L (46-116); ALT (SGPT) 22 U/L (10-68); BILIRUBIN - TOTAL 0.45 mg/dL (0.2-1.3); CALCIUM 8.2 mg/dL (8.5-10.1); CARBON DIOXIDE 31.9 mmol/L (21.0-32.0); CHLORIDE - SERUM 104 mmol/L (98-107); CREATININE - SERUM 0.6 mg/dL (0.6-1.3); GLUCOSE 95 mg/dL (74-106); POTASSIUM - SERUM 3.9 mmol/L (3.5-5.1); PROTEIN - SERUM 5.5 g/dL (6.4-8.2); SODIUM 141 mmol/L (136-145); eGFR NON AFRICAN AMERICAN > 90 mL/min (90-120)
[2019-06-13 06:55] LABS: CALC OSMOLALITY 281 mosm/kg (275-300); UREA NITROGEN 14 mg/dL (7-18)
[2019-06-13 08:46] VITALS: BP 129/66
[2019-06-13 13:03] VITALS: BP 145/60
--- NOTE | 2019-06-13 14:45 | MORECARE ---
CASE MANAGEMENT DISCHARGE SUMMARY PATIENT: ARIAS PEDRO UNIT: [id number] ADM DATE: 06/08/19 AGE: 84 : 36 SEX: F ROOM/BED: D.2204 AUTHOR: LEROY,DOC PHYSICIAN: REFERRING PHYSICIAN: LEXA PALMER MD DATE OF SERVICE: 06/13/19 Discharge Plan Patient Name: ARIAS PEDRO Facility: [facility]:[place] : 1935 Planned Disposition: Home with Home Health Anticipated Discharge Date: Discharge Date: Expected LOS: Initial Reviewer: [id number] Initial Review Date: 06/08/2019 Generated: 06/13/19 3:45 pm Comments DCP- Discharge Planning Updated by [email or web address]: Kate Pressley on 06/13/19 1:[address] PATIENT AGREEABLE TO INPATIENT REHAB, IMM SERVED AND EXPLAINED. PLAN TO DC TO INPATIENT REHAB TOMORROW WHEN THEIR IS A BED OPENED. CM TO FOLLOW AND ASSIST PLANNED DCP- Discharge Planning Updated by [email or web address]: Deborah Chilel on 06/12/19 5:[address] CM MET WITH THE PATIENT AT THE BEDSIDE. EXPLAINED MY ROLE AND RECEIVED PERMISSION TO PROCEED W/ ASSESSMENT. CM DISCUSSED OPTIONS AT DISCHARGE. THE PATIENT STATES HER PLAN WAS TO RETURN TO HOME W/ "[facility]". SHE IS . HER DOES THE COOKING. SHE DOES NOT UTILIZE ANY COMMUNITY SERVICES. SHE HAS 2 STEPS TO ENTER HER HOME W/ RAILING. SHE HAS A WALKER AND SHOWER BENCH. SHE WOULD LIKE A RAISED TOILET SEAT. PCP- DR [facility]- [facility] [employer] [facility] AND [facility] [address]. HER WILL PROVIDE TRANSPORTATION TO HOME. PATIENT HAS NASAL OXYGEN AT 2/L. WILL NEED TO OBTAIN ROOM AIR SAT. PATIENT AMBULATED 6 FEET W/ 30% ASSIST THIS PM W/ PHYSICAL THERAPY. DCPIA - Discharge Planning Initial Assessment Updated by [id number]: Deborah Chilel on 06/12/19 5:54 pm * Is the patient Alert and Oriented? Yes * How many steps to enter\\exit or inside your home? 2 W/ RAIL * PCP DR CARRIE FISH * [facility] [address] * Preadmission Environment Home with Family * ADLs Independent * Equipment Rolling Walker * Other Equipment SHOWER BENCH * List name and contact numbers for known caregivers / representatives who currently or will assist patient after discharge: DORITA PEDRO- [facility]- [phone] * Verbal permission to speak to the caregivers and representatives has been obtained from the patient. No * Community resources currently utilized None * Additional services required to return to the preadmission environment? Yes * Can the patient safely return to the preadmission environment? Yes * Has this patient been hospitalized within the prior 30 days at any hospital? No Coverage Notice Reviewer: [email or web address] Misa Pressley Notice Issued Date-Time: 06/13/2019 13:30 Notice Type: IM Discharge Notice Notice Delivered To: Patient Relationship to Patient: Director Of Extension Work Name: Delivery Method: - Sierra Days: Prior Verbal Notification: Recipient Understood Notice: Yes Recipient Signature: Yes Med Rec Note Co-signed by Attending: Coverage Notice Comment: Last DP export: 06/12/19 5:09 p Patient Name: ARIAS PEDRO Page 27517 at 1445 All edits/amendments must be made on the electronic document DICTATION DATE: 06/13/19 1445 MARINE FITTER: VIC 06/13/19 1445 RPT#: [id number] DC DATE: STATUS: ADM IN [facility] [address] [place] [address] END OF REPORT
[2019-06-13 15:48] LABS: APPEARANCE CLEAR (CLEAR); BILIRUBIN NEGATIVE (NEGATIVE); COLOR YELLOW (YELLOW); GLUCOSE NEGATIVE (NEGATIVE); KETONE NEGATIVE (NEGATIVE); NITRITE NEGATIVE (NEGATIVE); PROTEIN NEGATIVE (NEGATIVE); UROBILINOGEN NORMAL (NORMAL)
[2019-06-13 17:41] VITALS: BP 121/52
[2019-06-13 21:17] VITALS: BP 113/62
[2019-06-14 00:17] VITALS: BP 124/64
[2019-06-14 04:42] VITALS: BP 120/54
[2019-06-14 07:04] LABS: BASOPHILS 0.2 % (0-2); EOSINOPHILS 2.6 % (0-7); HEMATOCRIT 30.2 % (36.0-48.0); HEMOGLOBIN 9.9 g/dL (12-16); IMMATURE GRANULOCYTES 0.2 % (0-5); LYMPHOCYTES 27.3 % (15-50); MCH 31.8 pg (26.0-34.0); MCHC 32.8 g/dL (31.0-37.0); MCV 97.1 fL (80.0-100.0); MEAN PLATELET VOLUME 9.8 fL (7.4-10.4); MONOCYTES 16.2 % (2-11); NEUTROPHILS 53.5 % (40-80); PLATELET COUNT 230 10x3/uL (130-400); RBC 3.11 10x6/uL (4.00-5.40); RDW 14.7 % (11.5-14.5); WBC 6.2 10x3/uL (4.8-10.8)
[2019-06-14 08:06] VITALS: BP 139/62
--- NOTE | 2019-06-14 11:38 | MORECARE ---
CASE MANAGEMENT DISCHARGE SUMMARY PATIENT: ARIAS PEDRO UNIT: [id number] ADM DATE: 06/08/19 AGE: 84 : 36 SEX: F ROOM/BED: D.2204 AUTHOR: LEROY,DOC PHYSICIAN: REFERRING PHYSICIAN: LEXA PALMER MD DATE OF SERVICE: 06/14/19 Discharge Plan Patient Name: ARIAS PEDRO Facility: [facility]:[place] : 1935 Planned Disposition: Home with Home Health Anticipated Discharge Date: Discharge Date: Expected LOS: Initial Reviewer: [email or web address] Initial Review Date: 06/08/2019 Generated: 06/14/19 12:38 pm Comments DCP- Discharge Planning Updated by [id number]: Kate Pressley on 06/14/19 10:[address] PATIENT DISCHARGING TO INPATIENT REHAB TODAY DCP- Discharge Planning Updated by [id number]: Kate Pressley on 06/13/19 1:[address] PATIENT AGREEABLE TO INPATIENT REHAB, IMM SERVED AND EXPLAINED. PLAN TO DC TO INPATIENT REHAB TOMORROW WHEN THEIR IS A BED OPENED. CM TO FOLLOW AND ASSIST PLANNED DCP- Discharge Planning Updated by [id number]: Deborah Chilel on 06/12/19 5:[address] CM MET WITH THE PATIENT AT THE BEDSIDE. EXPLAINED MY ROLE AND RECEIVED PERMISSION TO PROCEED W/ ASSESSMENT. CM DISCUSSED OPTIONS AT DISCHARGE. THE PATIENT STATES HER PLAN WAS TO RETURN TO HOME W/ "[facility]". SHE IS . HER DOES THE COOKING. SHE DOES NOT UTILIZE ANY COMMUNITY SERVICES. SHE HAS 2 STEPS TO ENTER HER HOME W/ RAILING. SHE HAS A WALKER AND SHOWER BENCH. SHE WOULD LIKE A RAISED TOILET SEAT. PCP- DR CARRIE [facility]- RECEIVES MEDS FROM THE [facility] AND SHORT TERM MEDS FROM [facility] ON [address] HER WILL PROVIDE TRANSPORTATION TO HOME. PATIENT HAS NASAL OXYGEN AT 2/L. WILL NEED TO OBTAIN ROOM AIR SAT. PATIENT AMBULATED 6 FEET W/ 30% ASSIST THIS PM W/ PHYSICAL THERAPY. DCPIA - Discharge Planning Initial Assessment Updated by [email or web address]: Deborah Chilel on 06/12/19 5:54 pm * Is the patient Alert and Oriented? Yes * How many steps to enter\\exit or inside your home? 2 W/ RAIL * PCP DR CARRIE FISH * Pharmacy [facility] [address] * Preadmission Environment Home with Family * ADLs Independent * Equipment Rolling Walker * Other Equipment SHOWER BENCH * List name and contact numbers for known caregivers / representatives who currently or will assist patient after discharge: DORITA PEDRO- [facility]- [phone] * Verbal permission to speak to the caregivers and representatives has been obtained from the patient. No * Community resources currently utilized None * Additional services required to return to the preadmission environment? Yes * Can the patient safely return to the preadmission environment? Yes * Has this patient been hospitalized within the prior 30 days at any hospital? No Coverage Notice Reviewer: [id number] Misa Pressley Notice Issued Date-Time: 06/13/2019 13:30 Notice Type: IM Discharge Notice Notice Delivered To: Patient Relationship to Patient: Laser Operator Name: Delivery Method: - Sierra Days: Prior Verbal Notification: Recipient Understood Notice: Yes Recipient Signature: Yes Med Rec Note Co-signed by Attending: Coverage Notice Comment: Last DP export: 06/13/19 1:45 p Patient Name: ARIAS PEDRO Page [id number] at 1138 All edits/amendments must be made on the electronic document DICTATION DATE: 06/14/191137 SHELL SIEVE OPERATOR: VIC 06/14/198 RPT#: [id number] DC DATE: STATUS: ADM IN [facility] [address] [place] [address] END OF REPORT
[2019-06-14] MEDS ORDERED: IPRAT-ALBUT 0.5-3 ML UPD (13:31)
[2019-06-14] MEDS ORDERED: ASPIRIN325 MG PO (13:31)
[2019-06-14] MEDS ORDERED: COLACE100 MG PO (13:32)
[2019-06-14] MEDS ORDERED: HYDROCODON-ACE1 EA10 PO (13:32)
[2019-06-14] MEDS ORDERED: K-DUR20 MEQ PO (13:32)
[2019-06-14] MEDS ORDERED: MAG-OX 400 MG400 MG PO (13:34)
[2019-06-14] MEDS ORDERED: ZOFRAN INJ IV (13:34)
[2019-06-14] MEDS ORDERED: MIRALAX17 GM PO (13:34)
[2019-06-14] MEDS ORDERED: PROTONIX40 MG PO (13:34)
[2019-06-14] MEDS ORDERED: MUCINEX600 MG PO (13:35)
[2019-06-14] MEDS ORDERED: TESSALON PERLE100 MG PO (13:35)
[2019-06-14] MEDS ORDERED: Potassium Cl oral po PO (13:36)
[2019-06-14] MEDS ORDERED: MAGNESIUM-2 GM/50 M1 IV (13:37)
[2019-06-14 14:15] VITALS: BP 141/57
[2019-06-14 15:47] VITALS: BP 127/47
--- NOTE | 2019-06-15 13:14 | MORECARE ---
CASE MANAGEMENT DISCHARGE SUMMARY PATIENT: ARIAS PEDROU UNIT: [id number] ADM DATE: 06/08/19 AGE: 84 : 36 SEX: F ROOM/BED: D.2204 AUTHOR: LEROY,DOC PHYSICIAN: REFERRING PHYSICIAN: LEXA PALMER MD DATE OF SERVICE: 06/15/19 Discharge Plan Patient Name: ARIAS PEDRO Facility: [facility]:[place] : 1935 Planned Disposition: Home with Home Health Anticipated Discharge Date: Discharge Date: 06/14/2019 Expected LOS: Initial Reviewer: [id number] Initial Review Date: 06/08/2019 Generated: 06/15/19 2:13 pm Comments DCP- Discharge Planning Updated by [id number]: Kate Pressley on 06/14/19 10:[address] PATIENT DISCHARGING TO INPATIENT REHAB TODAY DCP- Discharge Planning Updated by [id number]: Kate Pressley on 06/13/19 1:[address] PATIENT AGREEABLE TO INPATIENT REHAB, IMM SERVED AND EXPLAINED. PLAN TO DC TO INPATIENT REHAB TOMORROW WHEN THEIR IS A BED OPENED. CM TO FOLLOW AND ASSIST PLANNED DCP- Discharge Planning Updated by [email or web address]: Deborah Chilel on 06/12/19 5:[address] CM MET WITH THE PATIENT AT THE BEDSIDE. EXPLAINED MY ROLE AND RECEIVED PERMISSION TO PROCEED W/ ASSESSMENT. CM DISCUSSED OPTIONS AT DISCHARGE. THE PATIENT STATES HER PLAN WAS TO RETURN TO HOME W/ "[facility]". SHE IS . HER DOES THE COOKING. SHE DOES NOT UTILIZE ANY COMMUNITY SERVICES. SHE HAS 2 STEPS TO ENTER HER HOME W/ RAILING. SHE HAS A WALKER AND SHOWER BENCH. SHE WOULD LIKE A RAISED TOILET SEAT. PCP- DR [facility]RI[facility]- RECEIVES MEDS FROM THE [facility] AND SHORT TERM MEDS FROM [facility] ON [address] HER WILL PROVIDE TRANSPORTATION TO HOME. PATIENT HAS NASAL OXYGEN AT 2/L. WILL NEED TO OBTAIN ROOM AIR SAT. PATIENT AMBULATED 6 FEET W/ 30% ASSIST THIS PM W/ PHYSICAL THERAPY. DCPIA - Discharge Planning Initial Assessment Updated by [email or web address]: Deborah Chilel on 06/12/19 5:54 pm * Is the patient Alert and Oriented? Yes * How many steps to enter\\exit or inside your home? 2 W/ RAIL * PCP DR CARRIE FISH * Pharmacy [facility] [address] * Preadmission Environment Home with Family * ADLs Independent * Equipment Rolling Walker * Other Equipment SHOWER BENCH * List name and contact numbers for known caregivers / representatives who currently or will assist patient after discharge: DORITA PEDRO- [facility]- [phone] * Verbal permission to speak to the caregivers and representatives has been obtained from the patient. No * Community resources currently utilized None * Additional services required to return to the preadmission environment? Yes * Can the patient safely return to the preadmission environment? Yes * Has this patient been hospitalized within the prior 30 days at any hospital? No Coverage Notice Reviewer: [email or web address] Misa Pressley Notice Issued Date-Time: 06/13/2019 13:30 Notice Type: IM Discharge Notice Notice Delivered To: Patient Relationship to Patient: Sales Support Rep Name: Delivery Method: - Sierra Days: Prior Verbal Notification: Recipient Understood Notice: Yes Recipient Signature: Yes Med Rec Note Co-signed by Attending: Coverage Notice Comment: Last DP export: 06/14/19 10:38 a Patient Name: ARIAS PEDRO Page 25587 at 1314 All edits/amendments must be made on the electronic document DICTATION DATE: 06/15/19 1313 INJECTION WAX MOLDER: VIC 06/15/19 1313 RPT#: [id number] DC DATE:06/14/19 STATUS: DIS IN [facility] [address] [place] [address] END OF REPORT
== END 2019-06-14 16:17 | DRG 470 ==
LOC: D.MS 06-08 08:25 → D.SDCHOLD 06-08 08:25 → D.MS 06-08 14:53
PROVIDERS: Anesthesiology; Family Medicine; Internal Medicine Nephrology; ADMIT Orthopaedic Surgery; ATTEND Orthopaedic Surgery
PROC: 0SRB0J9 Replacement of Left Hip Joint with Synthetic Substitute, Cemented, Open Approach (ICD-10-PCS; principal; 2019-06-08 10:30)
PROC: 0SPB04Z Removal of Internal Fixation Device from Left Hip Joint, Open Approach (ICD-10-PCS; 2019-06-08 10:30)
DX: M16.12 Unilateral primary osteoarthritis, left hip (principal); Z96.698 Presence of other orthopedic joint implants; I10 Essential (primary) hypertension; E78.5 Hyperlipidemia, unspecified; M54.9 Dorsalgia, unspecified

== ENCOUNTER 2019-06-14 16:58 | Inpatient (IN) | payer MEDICARE, OTHER ==
[~2019-06-14] VITALS: Ht 149.9 cm; Wt 47.2 kg
[~2019-06-14 16:58] MED LIST changes: +BAYER CHEWABLE81 MG PO; +COLACE100 MG PO; +HYDROCODON-ACE1 EA10 PO; +IPRAT-ALBUT 0.5-3 ML UPD; +K-DUR20 MEQ PO; +K-TAB10 MEQ PO; +MAG-OX 400 MG400 MG PO; +MAGNESIUM-2 GM/50 M1 IV; +MIRALAX17 GM PO; +OS-CAL500 MG PO; +PROCARDIA XL30 MG PO; +PROTONIX40 MG PO; +Potassium Cl oral po PO; +ZOFRAN INJ IV
[2019-06-14 17:50] VITALS: BP 104/56; BP 149/66; BMI 21.0
--- NOTE | 2019-06-14 21:39 | NUR ---
A&O X 4. REPORTS NEED TO USE BATHROOM. ASSISTED TO WHEELCHAIR, THEN TO RESTROOM. PT VOIDED CLEAR YELLOW URINE, ASSISTED NACK TO BED. DENIES FURTHER NEEDS AT THIS TIME. WILL CONTINUE TO MONITOR.
--- NOTE | 2019-06-15 02:53 | NUR ---
I have reviewed this patient and I concur with the Shift Assessment completed by the Licensed Practical Nurse today this shift.
[2019-06-15 07:37] LABS: BASOPHILS 0.1 % (0-2); EOSINOPHILS 2.8 % (0-7); HEMATOCRIT 28.7 % (36.0-48.0); HEMOGLOBIN 9.6 g/dL (12-16); IMMATURE GRANULOCYTES 0.3 % (0-5); LYMPHOCYTES 15.5 % (15-50); MCH 32.3 pg (26.0-34.0); MCHC 33.4 g/dL (31.0-37.0); MCV 96.6 fL (80.0-100.0); MEAN PLATELET VOLUME 9.6 fL (7.4-10.4); MONOCYTES 15.1 % (2-11); NEUTROPHILS 66.2 % (40-80); PLATELET COUNT 249 10x3/uL (130-400); RBC 2.97 10x6/uL (4.00-5.40); RDW 14.3 % (11.5-14.5); WBC 6.8 10x3/uL (4.8-10.8)
[2019-06-15 07:44] LABS: CALC OSMOLALITY 281 mosm/kg (275-300); CALCIUM 8.4 mg/dL (8.5-10.1); CARBON DIOXIDE 30.3 mmol/L (21.0-32.0); CHLORIDE - SERUM 103 mmol/L (98-107); CREATININE - SERUM 0.6 mg/dL (0.6-1.3); GLUCOSE 93 mg/dL (74-106); POTASSIUM - SERUM 3.7 mmol/L (3.5-5.1); SODIUM 141 mmol/L (136-145); UREA NITROGEN 14 mg/dL (7-18); eGFR NON AFRICAN AMERICAN > 90 mL/min (90-120)
[2019-06-15 08:02] VITALS: BP 153/61
--- NOTE | 2019-06-15 08:46 | NUR ---
PATIENT SITTING UP IN BED TO EAT BREAKFAST. ALERT/ORIENT. CALL LIGHT WITHIN REACH. VOICES NO NEEDS. WILL CONTINUE WITH PLAN OF CARE
--- NOTE | 2019-06-15 10:00 | NUR ---
PATIENT IN REHAB ROOM. WORKING WITH PHYICAL THERAPIST. DENIES ANY PAIN/DISC AT THIS TIME.
--- NOTE | 2019-06-15 12:30 | NUR ---
PATIENT SITTING UP IN WHEELCHAIR AT BEDSIDE. CALL LIGHT WITHIN REACH.
[2019-06-15 13:33] VITALS: Ht 149.9 cm; Wt 47.2 kg
--- NOTE | 2019-06-15 14:40 | NUR ---
I have reviewed this patient and I concur with the Shift Assessment completed by the Licensed Practical Nurse today this shift.
--- NOTE | 2019-06-15 19:40 | NUR ---
PT SITTING ON SIDE OF BED. CL IN REACH. DENIES NEEDS OR PAIN AT THIS TIME. BED IN LOW SIDE RAILS X2. A/O X4. RESP EVEN AND UNLABORED. 2L OF O2 VIA NC. WOUND VAC INTACT. WCTM
--- NOTE | 2019-06-15 20:45 | NUR ---
ASSISTED TO AND FROM BATHROOM. BACK IN BED. CL IN REACH. DENIES FURTHER NEEDS. CL IN REACH. RESP EVEN AND UNLABORED. WILL CONTINUE TO MONITOR.
[2019-06-15 20:52] VITALS: BP 132/52
--- NOTE | 2019-06-16 03:22 | NUR ---
I have reviewed this patient and I concur with the Shift Assessment completed by the Licensed Practical Nurse today this shift.
--- NOTE | 2019-06-16 04:26 | NUR ---
PT RESTING QUIETLY. CL IN REACH. NO DISTRESS NOTED. WCTM
--- NOTE | 2019-06-16 06:52 | NUR ---
ASSISTED TO AND FROM BATHROOM. CL IN REACH. PT BACK IN BED. DENIES NEEDS. WCTM
--- NOTE | 2019-06-16 07:30 | NUR ---
PT TAKEN TO THERAPY GYM FOR THERAPY AND BREAKFAST. PT DENIES NEEDS. WCTM.
--- NOTE | 2019-06-16 09:05 | NUR ---
PT AM MEDS ADMINISTERED. PT RESTING IN BED, DENIES NEEDS. WCTM.
[2019-06-16 11:17] VITALS: BP 144/52
--- NOTE | 2019-06-16 14:05 | NUR ---
CALLED [facility] MATTA WITH DR PALMER. LEFT MESSAGE ASKING IF WE MAY REMOVE THE PROVENA WOUND VAC TODAY. WAITING FOR CALL BACK.
--- NOTE | 2019-06-16 15:06 | NUR ---
SPOKE WITH [facility]. ORDERS TO REMOVE PROVENA AND PLACE BORDER GAUZE.
--- NOTE | 2019-06-16 15:22 | NUR ---
PT WOUND VAC REMOVED REVEALING A WELL APPROX INCISION WITH 27 ALFREDO. NO REDNESS OR SWELLING. PT TOLERATED WELL. BORDER GAUZE IN PLACE.
--- NOTE | 2019-06-16 15:58 | NUR ---
PATIENT ADMITTED TO REHAB FROM ACUTE FLOOR. DISHCARGE PLANS ARE FOR HER TO RETURN HOME WITH HER SPOUSE. DME AT HOME IS A WALKER AND SHOWER BENCH. SHE IS A CLIENT OF [facility] AND DR. FISH IS HER PCP. WILL CONTINUE TO FOLLOW WITH PATIENT.
--- NOTE | 2019-06-16 17:22 | NUR ---
PT SITTING UP EATING DINNER, DENIES NEEDS. WCTM.
[2019-06-16 19:45] VITALS: BP 146/62
--- NOTE | 2019-06-16 19:46 | NUR ---
PATIENT RECEIVED SITTING UP IN BED. NO C/O PAIN OR DISTRESS. VITAL SIGNS & ASSESSMENT DONE. BED LOW. CALL LIGHT WITHIN REACH. WILL CONTINUE TO MONITOR.
--- NOTE | 2019-06-17 00:28 | NUR ---
I have reviewed this patient and I concur with the Shift Assessment completed by the Licensed Practical Nurse today this shift.
--- NOTE | 2019-06-17 04:20 | NUR ---
PATIENT EYES CLOSED. RESPIRATIONS 18 & EVEN. BED LOW. CALL LIGHT WITHIN REACH. WILL CONTINUE TO MONITOR.
[2019-06-17 07:30] VITALS: BP 152/50
[2019-06-17 07:55] LABS: BASOPHILS 0.2 % (0-2); EOSINOPHILS 3.8 % (0-7); HEMATOCRIT 31.7 % (36.0-48.0); HEMOGLOBIN 10.4 g/dL (12-16); IMMATURE GRANULOCYTES 0.3 % (0-5); LYMPHOCYTES 20.1 % (15-50); MCH 32.1 pg (26.0-34.0); MCHC 32.8 g/dL (31.0-37.0); MCV 97.8 fL (80.0-100.0); MEAN PLATELET VOLUME 9.5 fL (7.4-10.4); MONOCYTES 16.5 % (2-11); NEUTROPHILS 59.1 % (40-80); PLATELET COUNT 295 10x3/uL (130-400); RBC 3.24 10x6/uL (4.00-5.40)
[2019-06-17 08:03] LABS: ANION GAP 9.4 mmol/L (8-16); CALCIUM 8.7 mg/dL (8.5-10.1); CREATININE - SERUM 0.8 mg/dL (0.6-1.3); POTASSIUM - SERUM 3.4 mmol/L (3.5-5.1)
--- NOTE | 2019-06-17 10:13 | NUR ---
IN THERAPY ROOM.
--- NOTE | 2019-06-17 16:26 | NUR ---
LAYING DOWN IN BED RESTING QUIETLY. HAS A VISITOR IN ROOM. DENIES NEEDS. CALL LIGHT IN REACH. BED IN LOWEST POSITION, SIDE RAILS UP X2.
--- NOTE | 2019-06-17 19:38 | NUR ---
PT IS RESTING IN BED WATCHING TV. ALERT AND ORIENTED X 3. DENIES ANY PAIN OR DISCOMFORT AT THIS TIME. PT VOICED CONCERN ABOUT HAVING A MALE NURSE TAKING HER TO THE BATHROOM, BUT AGREED TO GIVE IT A TRY. DRESSING TO LEFT HIP IS CDI. SR'S ARE UP X 3 IN BED. CALL LIGHT AND BEDSIDE TABLE ARE WITHIN EASY REACH.
[2019-06-17 19:48] VITALS: BP 133/68
--- NOTE | 2019-06-17 22:22 | NUR ---
PT ASSISTED TO THE BATHROOM WITH MOD ASSIST FOR BED TRANSFERS. SBA FOR ALL OTHER TASKS. LARGE FORMED BM NOTED.
--- NOTE | 2019-06-18 00:09 | NUR ---
I have reviewed this patient and I concur with the Shift Assessment completed by the Licensed Practical Nurse today this shift.
--- NOTE | 2019-06-18 03:35 | NUR ---
PT VOICED COMPLAINT OF LEFT HIP DRAINING. INCISION WAS SATURATED. DRESSING REMOVED AND SITE CLEANSED WITH WOUND CUSTOM GARMENT DESIGNER. NOTED TO BE DRAINING SEROUS FLUID FROM THE UPPER INCISION. 4X4'S APPLIED, AND AIR STRIP DRESSING APPLIED OVER IT. PTS SCRUBS REMOVED, AND GOWN APPLIED DUE TO NO SCRUBS AVAILABLE TONIGHT.
--- NOTE | 2019-06-18 05:50 | NUR ---
RESTING IN BED WITH EYES CLOSED. AWOKE EASILY TO VERBAL STIMULI. TOLERATED AM MED WITHOUT DIFFICULTY.
[2019-06-18 07:30] VITALS: BP 126/54
--- NOTE | 2019-06-18 10:26 | NUR ---
SITTING UP IN BED WATCHING TV. DENIES NEEDS OR C/O. DSG TO LEFT HIP INTACT. CALL LIGHT IN REACH.
--- NOTE | 2019-06-18 13:39 | NUR ---
DRESSING CHANGED TO LEFT HIP. ONE SMALL ACTIVE BLEED SITE AROUND A STAPLE. BULKY DRESSING APPLIED. PT DENIES PAIN OR OTHER PROBLEMS. AREA AROUND INCISION IS HARD BUT NOT WARM TO TOUCH.
--- NOTE | 2019-06-18 16:41 | NUR ---
RESTING QUIETLY IN BED. EYES CLOSED. RESP EFFORT NON LABORED. CALL LIGHT IN HAND. SIDE RAILS UP X2. BED IN LOWEST POSITION.
--- NOTE | 2019-06-18 19:09 | NUR ---
PT IS RESTING IN BED WITH EYES OPEN. ALERT AND ORIENTED X 3. DENIES ANY PAIN OR DISCOMFORT AT THIS TIME. NO NEEDS VOICED. DRESSING TO LEFT HIP IS CDI. SR'S ARE UP X 2 IN BED. CALL LIGHT AND BEDSIDE TABLE ARE WITHIN EASY REACH.
--- NOTE | 2019-06-18 19:43 | NUR ---
PATIENT RECEIVED SITTING UP IN BED WATCHING TV. ASSESSMENT & VITAL SIGNS DONE. NO C/O PAIN OR DISTRESS. BED LOW. CALL LIGHT WITHIN REACH. WILL CONTINUE TO MONITOR.
[2019-06-18 19:52] VITALS: BP 121/54
--- NOTE | 2019-06-18 23:34 | NUR ---
I have reviewed this patient and I concur with the Shift Assessment completed by the Licensed Practical Nurse today this shift.
--- NOTE | 2019-06-19 02:24 | NUR ---
PATIENT EYES CLOSED. RESPIRATIONS 18 & EVEN. BED LOW. CALL LIGHT WITHIN REACH. WILL CONTINUE TO MONITOR.
--- NOTE | 2019-06-19 07:19 | NUR ---
RESTING WITH EYES CLOSED. RESP EVEN AND UNLABORED. NO DISTRESS NOTED. CL IN REACH.
[2019-06-19 08:11] VITALS: BP 136/59
--- NOTE | 2019-06-19 12:16 | NUR ---
SET UP FOR BATH. PATIENT WASHED ALL BUT HER L LE(SX HIP). SITTING UP IN FOR LUNCH AT THIS TIME.
--- NOTE | 2019-06-19 16:08 | NUR ---
NMO CHANGE IN ASSESSMENT. FAMILY AT BS.
--- NOTE | 2019-06-19 19:22 | NUR ---
PT SITTING UP IN BED. CL IN REACH. WATCHING TV. DENIES NEEDS OR PAIN AT THIS TIME. BED IN LOW SIDE RAILS X2. A/O X4. RESP EVEN AND UNLABORED. WILL CONTINUE TO MONITOR.
[2019-06-19 20:05] VITALS: BP 149/57
--- NOTE | 2019-06-19 21:53 | NUR ---
ASSISTED TO AND FROM BATHROOM. ORAL CARE COMPLETED BY PT. PT BACK IN BED. RAMO SCHWARTZ APPLIED. DENIES FURTHER NEEDS. WCTM CL IN REACH
--- NOTE | 2019-06-19 22:56 | NUR ---
I have reviewed this patient and I concur with the Shift Assessment completed by the Licensed Practical Nurse today this shift.
--- NOTE | 2019-06-20 02:05 | NUR ---
PT RESTING QUIETLY. CL IN REACH. NO DISTRESS NOTED. WCTM
--- NOTE | 2019-06-20 06:01 | NUR ---
ASSISTED TO AND FROM BATHROOM. CL IN REACH. BACK IN BED. DENIES FURTHER NEEDS. WILL CONTINUE TO MONITOR.
[2019-06-20 07:01] LABS: BASOPHILS 0.1 % (0-2); EOSINOPHILS 3.4 % (0-7); HEMATOCRIT 31.3 % (36.0-48.0); HEMOGLOBIN 10.1 g/dL (12-16); IMMATURE GRANULOCYTES 0.1 % (0-5); LYMPHOCYTES 20.1 % (15-50); MCH 31.9 pg (26.0-34.0); MCHC 32.3 g/dL (31.0-37.0); MCV 98.7 fL (80.0-100.0); MEAN PLATELET VOLUME 9.3 fL (7.4-10.4); MONOCYTES 12.9 % (2-11); NEUTROPHILS 63.4 % (40-80); PLATELET COUNT 305 10x3/uL (130-400); RBC 3.17 10x6/uL (4.00-5.40); RDW 14.4 % (11.5-14.5); WBC 6.8 10x3/uL (4.8-10.8)
[2019-06-20 07:06] LABS: CALC OSMOLALITY 283 mosm/kg (275-300); CALCIUM 8.5 mg/dL (8.5-10.1); CARBON DIOXIDE 32.4 mmol/L (21.0-32.0); CHLORIDE - SERUM 103 mmol/L (98-107); CREATININE - SERUM 0.6 mg/dL (0.6-1.3); GLUCOSE 89 mg/dL (74-106); POTASSIUM - SERUM 4.1 mmol/L (3.5-5.1); SODIUM 142 mmol/L (136-145); UREA NITROGEN 19 mg/dL (7-18); eGFR NON AFRICAN AMERICAN > 90 mL/min (90-120)
[2019-06-20 07:30] VITALS: BP 141/62
--- NOTE | 2019-06-20 12:16 | NUR ---
SITTING UP IN BED EATING LUNCH. DENIES NEEDS OR INCREASED PAIN. CALL LIGHT IN REACH
--- NOTE | 2019-06-20 18:05 | NUR ---
LAYING IN BED WATCHING TV. USES WALKER FOR AMBULATION ASST. DENIES INCREASED PAIN. CALL LIGHT IN REACH
--- NOTE | 2019-06-20 20:05 | NUR ---
PT SITTING UP IN BED. CL IN REACH. DENIES NEEDS OR PAIN. BED IN LOW SIDE RAILS X2. A/O X4. RESP EVEN AND UNLABORED. LUNGS CLEAR. BOWEL ACTIVE X4. WILL CONTINUE TO MONITOR.
[2019-06-20 20:36] VITALS: BP 139/70
--- NOTE | 2019-06-20 23:13 | NUR ---
ASSISTED TO AND FROM BATHROOM VIA WALKER. PT BACK IN BED.CL IN REACH. DENIES FURTHER NEEDS. WILL CONTINUE TO MONITOR.
--- NOTE | 2019-06-21 02:19 | NUR ---
I have reviewed this patient and I concur with the Shift Assessment completed by the Licensed Practical Nurse today this shift.
--- NOTE | 2019-06-21 04:10 | NUR ---
ASSISTED TO AND FROM BATHROOM. CL IN REACH. BACK IN BED. DENIES FURTHER NEEDS. WCTM
[2019-06-21 08:09] VITALS: BP 156/52
--- NOTE | 2019-06-21 08:19 | NUR ---
AWAKE AND ALERT. EATING BREAKFAST. NO C/O PAIN. CL IN REACH. SITTING IN WC.
--- NOTE | 2019-06-21 11:02 | NUR ---
PARTICIPATING IN THERAPY. CHANGED LINENS.
--- NOTE | 2019-06-21 14:19 | NUR ---
SHOWER TODAY WITH OT.
--- NOTE | 2019-06-21 14:20 | NUR ---
Nutrition Follow-up: Diet: Regular PO intake 62% x 10 meals Reports good appetite still. Labs reviewed Significant meds: miralax and colace +BM Wt: 104# (06/15/19) RD Following
--- NOTE | 2019-06-21 15:05 | NUR ---
PARTICIPATED IN THERAPY TODAY. CHANGED MEPLIX DRESSING TO REDNESS ON BACK. NO CHANGE IN ASSESSMENT. DRESSING CHANGED TO L HIP. NO DRAINAGE. ALFREDO CDI.
--- NOTE | 2019-06-21 20:45 | NUR ---
REST IN BED, AND WATCH TV.
[2019-06-21 23:02] VITALS: BP 151/63
--- NOTE | 2019-06-22 00:37 | NUR ---
REST IN BED. RESP EVEN, NO S/S OF DISTRESS. CALL LIGHT IN REACH.
--- NOTE | 2019-06-22 04:52 | NUR ---
REST IN BED, CALL LIGHT IN REACH.
--- NOTE | 2019-06-22 07:18 | NUR ---
ALERT AND ORIENTED. NO DISTRESS NOTED. RESP EVEN AND UNLABORED. CL IN REACH.
[2019-06-22 08:48] VITALS: BP 147/69
--- NOTE | 2019-06-22 14:21 | NUR ---
CARE TEAM MEETING: PATIENT IS DOING WELL IN THERAPY AND TENATIVE DISCHARGE DATE IS 06/24/19. SHE WILL [facility] WITH [facility]. WILL CONTINUE TO FOLLOW WITH PATIENT.
--- NOTE | 2019-06-22 15:01 | NUR ---
RESTING IN ROOM. AT BS. SIGNED CHAIR ALARM WAIVER TODAY. NO CHANGE IN ASSESSMENT.
[2019-06-22 20:00] VITALS: BP 148/48
--- NOTE | 2019-06-22 20:00 | NUR ---
PATIENT RECEIVED SITTING UP IN BED WATCHING TV. VITAL SIGNS & ASSSESSMENT DONE. NO C/O PAIN OR DISTRESS. BED LOW. CALLM LIGHT WITHIN REACH. WILL CONTINUE TO MONITOR.
--- NOTE | 2019-06-23 02:16 | NUR ---
I have reviewed this patient and I concur with the Shift Assessment completed by the Licensed Practical Nurse today this shift.
--- NOTE | 2019-06-23 02:52 | NUR ---
PATIENT EYES CLOSED. RESPIRATIONS 18 & EVEN. BED LOW. CALL LIGHT WITHIN REACH. WILL CONTINUE TO MONITOR.
[2019-06-23 08:54] VITALS: BP 145/50
--- NOTE | 2019-06-23 10:39 | NUR ---
RESTING QUIETLY IN BED. DENIES INCREASED PAIN. HAS BEEN IN THERAPY TODAY. IS ANXIOUS TO DC HOME. CALL LIGHT IN REACH
--- NOTE | 2019-06-23 13:11 | NUR ---
SITTING UP IN BED WATCHING TV. JUST FINISHED LUNCH. CALL LIGHT IN REACH
[2019-06-23 20:01] VITALS: BP 142/61
[2019-06-23 20:04] VITALS: BP 142/61
--- NOTE | 2019-06-23 22:43 | NUR ---
PATIENT RECEIVED SITTING UP IN BED. VITAL SIGNS & ASSESSMENT DONE. NO C/O PAIN OR DISTRESS AT THIS TIME. BED LOW. CALL LIGHT WITHIN REACH. WILL CONTINUE TO MONITOR.
--- NOTE | 2019-06-24 03:49 | NUR ---
PATIENT EYES CLOSED. RESPIRATIONS 18 & EVEN. BED LOW. CALL LIGHT WITHIN REACH. WILL CONTINUE TO MONITOR.
--- NOTE | 2019-06-24 03:53 | NUR ---
I have reviewed this patient and I concur with the Shift Assessment completed by the Licensed Practical Nurse today this shift.
[2019-06-24 07:07] LABS: BASOPHILS 0.2 % (0-2); EOSINOPHILS 4.3 % (0-7); HEMATOCRIT 31.2 % (36.0-48.0); HEMOGLOBIN 10.2 g/dL (12-16); IMMATURE GRANULOCYTES 0.2 % (0-5); LYMPHOCYTES 17.4 % (15-50); MCH 32.3 pg (26.0-34.0); MCHC 32.7 g/dL (31.0-37.0); MCV 98.7 fL (80.0-100.0); MEAN PLATELET VOLUME 9.4 fL (7.4-10.4); MONOCYTES 13.7 % (2-11); NEUTROPHILS 64.2 % (40-80); PLATELET COUNT 297 10x3/uL (130-400); RBC 3.16 10x6/uL (4.00-5.40); WBC 5.1 10x3/uL (4.8-10.8)
[2019-06-24 07:30] LABS: CALC OSMOLALITY 283 mosm/kg (275-300); CALCIUM 8.6 mg/dL (8.5-10.1); CARBON DIOXIDE 32.5 mmol/L (21.0-32.0); CHLORIDE - SERUM 105 mmol/L (98-107); CREATININE - SERUM 0.7 mg/dL (0.6-1.3); GLUCOSE 92 mg/dL (74-106); POTASSIUM - SERUM 3.5 mmol/L (3.5-5.1); SODIUM 142 mmol/L (136-145); UREA NITROGEN 14 mg/dL (7-18); eGFR NON AFRICAN AMERICAN 85 mL/min (90-120)
[2019-06-24 08:00] VITALS: BP 155/62
[2019-06-24] MEDS ORDERED: HYDROCODON-ACE1 EA10 PO (08:55)
--- NOTE | 2019-06-24 10:00 | NUR ---
PATIENT DISCHARGING HOME TODAY. [facility] WILL FOLLOW WITH PATIENT AT HOME . PATIENT WILL SEE DR. FISH NEEDED. DR. PALMER 06/27/19 @ 10:45. PATIENT CHOICE FORMS AND IMFM FORMS SIGNED, COPY GIVEN TO PATIENT AND FILED IN CHART.DISCHARGE INSTRUCTIONS WITH FIM DATA FAXED TO PCP, [facility] AND REVIEWED WITH PATIENT.
--- NOTE | 2019-06-24 10:39 | NUR ---
DC HOME WITH ALL PERSONAL BELONGINGS. PT DECLINED TO HAVE ANY MEDS CALLED IN TO HER PHARMACY. REVIEWED MEDS, DC PLAN AND FOLLOW UP APPTS WITH PT. ALFREDO DC'D AND STERI STRIPS PLACED ON INCISION. REMINDED PT TO MONITOR INCISION FOR SIGNS OF INFECTION.
--- NOTE | 2019-06-29 14:39 | RHP ---
PATIENT: ARIAS PEDRO MEDICAL RECORD: [id number] ACCOUNT: [id number] LOCATION:[facility] : 36 ADMISSION DATE: 06/14/19 REHABILITATION HISTORY AND PHYSICAL EXAMINATION POST ADMISSION PHYSICIAN EXAMINATION ADMITTING DIAGNOSIS: Unilateral joint replacement. HISTORY OF PRESENT ILLNESS: The patient is an 84-year-old female patient admitted for an elective left total hip due to increased pain, debility, decreased quality of life. Got a history of tobacco use, hyperlipidemia, chronic back pain, osteoarthritis, and she is postmenopausal. The patient was on telemetry, had supplemental O2, acute pain, acute blood loss anemia requiring blood transfusion. She is deconditioned, has debility, impaired mobility, gait disturbance. She is a high fall risk and self-care deficits. These are barriers to her discharge home. She lives at home with her , moderately independent with use of rolling walker for mobility and independent with ADLs. She is currently set up for mod assist with ADLs and mod assist to total assist for mobility. Plans to return home hopefully at her prior level of functioning or improved if possible. COMORBIDITIES: Include acute kidney injury, arthritis, hypertension, intertrochanteric fracture of the hip, chronic back pain, history of tobacco use. PAST MEDICAL HISTORY: Significant for hypertension, hyperlipidemia, coronary artery disease, arthritis, chronic back pain, osteoarthritis, tobacco use, menopause, and hip fracture. PAST SURGICAL HISTORY: Includes cataract surgery, appendectomy, right foot surgery. She has had left hip surgery and angioplasty with stents. ALLERGIES: AUGMENTIN. CURRENT MEDICATIONS: Include Protonix 40 mg daily, aspirin 325 mg daily, polyethylene glycol 17 grams in 8 ounces of water daily, Mucinex 1200 mg b.i.d., Colace 100 mg b.i.d., Tessalon Perles 100 mg t.i.d. She is on an electrolyte protocol at this time for replacement of her potassium and mag, Zofran 4 mg q.4 hours p.r.n., [place] 10/325 one tab q.4 hours p.r.n. HABITS: She does have a history of tobacco use. FAMILY HISTORY: Noncontributory. SOCIAL HISTORY: The patient hopes to return back home and get back to her prior level of functioning. REVIEW OF SYSTEMS: GENERAL: Does complain of a little bit of weakness and fatigue. HEENT: Denies cold, cough, or congestion. CARDIOVASCULAR: Denies chest pain. PHYSICAL EXAMINATION: VITAL SIGNS: Stable, afebrile. GENERAL: A thin elderly female, in no acute distress, alert upon exam. HISTORY AND PHYSICAL [id number] ARIAS PEDRO HEENT: Normocephalic and atraumatic. Mucosa moist. NECK: Supple. No lymphadenopathy. LUNGS: Clear at this time with no wheezing, rhonchi, or rales. HEART: Regular rate and rhythm. No murmurs, rubs or gallops. ABDOMEN: Soft, benign, and nondistended. Positive bowel sounds times 4. EXTREMITIES: No clubbing, cyanosis or edema. Postop area looks pretty good. NEUROLOGIC: She does have 2/5 muscular strength in both of her lower extremities. LABORATORY DATA: White count is noted to be 6.8, H&H of 9.6 and 28.7, and platelet count is 249. Her sodium 141, potassium 3.7, BUN and creatinine of 14 and 0.6, and blood sugar is noted to be 93. ASSESSMENT: This is an 84-year-old female patient admitted to the rehab with a working diagnosis of status post left total hip replacement secondary to severe degenerative changes in her joint. The patient has potential to make improvement. We instituted the following multidisciplinary therapies including, but not limited to physical, occupational, respiratory, speech, nutritional services, prosthetics and orthotics. Given her complex medical condition and risk for more complications, rehabilitation services cannot be provided at a low level of care such as senior care facility. PLAN: 1. Admit to [facility] rehab for an intensive inpatient therapy to include the following disciplines: A. Physical therapy to improve gait, all transfer skills and bed mobility to a modified independent level. B. Occupational therapy to improve activities of daily living to a modified independent level. C. Case management to assist with discharge planning and placement options. D. Nutrition to assist with nutritional needs. E. Rehabilitation nursing to assist in monitoring the patient's underlying medical conditions and to assist with any type of bowel or bladder management. 2. The patient's current medication and medical care will be continued. 3. The patient will be placed on standard fall precautions. 4. The patient's estimated length of stay is approximately 7-10 days. 5. We will discuss the patient during care team staff meeting this week. We will watch her blood counts closely and replace as needed and I will see again in the a.m. TRANSINT:[id number] Voice Confirmation ID: [id number] DOCUMENT ID: [id number] SHEILA notes whether there has been none or any medical/functional change since admission: - No change since preadmission screen. SHEILA attests patient continues to be appropriate for IRF: - Continues to be appropriate. HISTORY AND PHYSICAL [id number] ARIAS PEDRO,RODOLFO VELÁSQUEZ MD at 1439 CC: [id number] DICTATION DATE: 06/15/19899 BIOTECH PRODUCTION SPECIALIST: 06/15/19 09 DIS IN 06/24/19 [id number] [place] [address]
== END 2019-06-24 11:00 | disposition home health service (06) | DRG 560 ==
LOC: D.REHAB 16:58
PROVIDERS: ADMIT Emergency Medicine; ATTEND Emergency Medicine
DX: Z47.1 Aftercare following joint replacement surgery (principal); N17.9 Acute kidney failure, unspecified; Z96.642 Presence of left artificial hip joint; M16.12 Unilateral primary osteoarthritis, left hip; I10 Essential (primary) hypertension; G89.29 Other chronic pain; S72.142D Displaced intertrochanteric fracture of left femur, subsequent encounter for closed fracture with routine healing

== ENCOUNTER 2021-02-06 06:34 | Observation (INO) | payer MEDICARE, OTHER ==
[2021-02-06] VITALS (7 sets, daily range): BP systolic 130–146; BP diastolic 63–97; Ht 149.9 cm; Wt 50.9 kg
[~2021-02-06] VITALS: Ht 149.9 cm; Wt 50.9 kg
--- NOTE | ~2021-02-06 | EC ---
PATIENT:ARIAS PEDRO DATE OF SERVICE: 02/06/21 SEX: F MEDICAL RECORD: [id number] DATE OF : 37 LOCATION:D.M2 D.212 AGE OF PATIENT: 85 ADMISSION DATE: 02/06/21 REFERRING PHYSICIAN: INTERPRETING PHYSICIAN: FITZ SULLIVAN MD ECHOCARDIOGRAM REPORT ECHO CHARGES 4 ECHO COMPLETE Date: 02/07/21 CLINICAL DIAGNOSIS: CVA ECHOCARDIOGRAPHIC MEASUREMENTS (adult normal given) AC root (d.<3.7cm) 2.5 cm LV Septum d (<1.2 cm> 0.9 cm Valve Excursion 1.4 cm LV Septum (systole) 1.0 cm Left Atria (s.<4.0cm> 2.8 cm LVPW d(<1.2cm) 0.8 cm RV (d.<2.3cm) 2.1 cm LVPW (sytole) 1.0 cm LV diastole(<5.6CM) 4.4 cm MV E-F(>70mm/sec) cm LV systole 3.5 cm LVOT Diameter 1.5 cm MV exc.(>10mm) 0.9 cm Est.ejection fraction (50-75%) % DOPPLER: LVIT cm/sec A 78 cm/sec E 44 cm/sec LA cm/sec RVSP 36 mmHg LVOT 90 cm/sec AOP1/2T m/s Asc. Ao 228 cm/sec RVOT 53 cm/sec RA cm/sec PA 62 cm/sec AV Gradient Peak 20.9 mmHg AV Mean 11.7 mmHg AV Area 0.8 cm MV Gradient Peak 4.0 mmHg MV Mean 1.6 mmHg MV Area cm COMMENTS: Director [facility]: Bharti CHATTERJEE Orange Grower: 5 Dr. Sullivan TAPE# Pericardial Effusion N DATE OF SERVICE: CLINICAL DIAGNOSIS: CVA. Technically difficult study. FINDINGS: Overall, normal left ventricular chamber size and contractile function, ejection fraction of 55% to 60%. Left atrial chamber appears normal. Right atrium and right ventricular chamber is not well visualized and appeared normal. Mild thickening and calcification of the aortic valve with decreased ECHOCARDIOGRAM REPORT [id number] ARIAS PEDRO cusp excursion with aortic sclerosis/mild stenosis. No aortic regurgitation noted. Mitral valve appears normal. No mitral regurgitation. Tricuspid valve not well visualized. Trace tricuspid regurgitation. Pulmonic valve is not well visualized. No pulmonary insufficiency. No pericardial effusion visualized. IMPRESSION: Technically difficult study with overall normal left ventricular chamber size and contractile function with ejection fraction of 55% to 60%. TRANSINT:[id number] Voice Confirmation ID: [id number] DOCUMENT ID: [id number] FITZ SULLIVAN MD CC: [id number] DICTATION DATE: 02/07/21 1540 COMPENSATION VICE PRESIDENT: 02/07/212013 DIS IN 02/07/21 [facility] [address] [id number]
[2021-02-06 07:22] LABS: BASOPHILS 0.1 % (0-2); EOSINOPHILS 0.8 % (0-7); HEMATOCRIT 44.4 % (36.0-48.0); HEMOGLOBIN 14.6 g/dL (12-16); IMMATURE GRANULOCYTES 0.3 % (0-5); LYMPHOCYTE ABS# 1.48 10x3/uL (1.18-3.74); LYMPHOCYTES 19.7 % (15-50); MCH 33.4 pg (26.0-34.0); MCHC 32.9 g/dL (31.0-37.0); MCV 101.6 fL (80.0-100.0); MEAN PLATELET VOLUME 10.2 fL (7.4-10.4); MONOCYTES 12.9 % (2-11); NEUTROPHIL ABS# 4.97 10x3/uL (1.56-6.13); NEUTROPHILS 66.2 % (40-80); PLATELET COUNT 277 10x3/uL (130-400); RBC 4.37 10x6/uL (4.00-5.40); WBC 7.5 10x3/uL (4.8-10.8)
[2021-02-06 07:27] LABS: BILIRUBIN NEGATIVE (NEGATIVE); KETONE NEGATIVE (NEGATIVE); NITRITE NEGATIVE (NEGATIVE); UROBILINOGEN NORMAL mg/dL (< 2)
[2021-02-06 07:28] LABS: CALC OSMOLALITY 281 mosm/kg (275-300); CALCIUM 9.7 mg/dL (8.5-10.1); CARBON DIOXIDE 29.6 mmol/L (21.0-32.0); CHLORIDE - SERUM 101 mmol/L (98-107); CREATININE - SERUM 0.8 mg/dL (0.6-1.3); GLUCOSE 113 mg/dL (74-106); POTASSIUM - SERUM 3.2 mmol/L (3.5-5.1); SODIUM 140 mmol/L (136-145); UREA NITROGEN 17 mg/dL (7-18); eGFR NON AFRICAN AMERICAN 72 mL/min (90-120)
[2021-02-06 07:29] LABS: APTT 33.5 SECONDS (22.8-39.4); PROTIME 12.2 SECONDS (11.6-15.0)
[2021-02-06 07:43] LABS: ALBUMIN 3.8 g/dL (3.4-5.0); ALKALINE PHOSPHATASE 100 U/L (30-120); ALT (SGPT) 22 U/L (10-68); BILIRUBIN - TOTAL 0.44 mg/dL (0.2-1.3); PRO BNP 76 pg/mL (0-450); PROTEIN - SERUM 7.5 g/dL (6.4-8.2); THYROID STIMULATING HORMONE 2.01 uIU/mL (0.36-3.74); TROPONIN-I < 0.017 ng/mL (0.000-0.060)
--- NOTE | 2021-02-06 11:00 | NUR ---
PATIENT ARRIVED VIA WHEELCHAIR. SPOUSE AT BEDSIDE. ALERT AND ORIENTED. NO RIGHT SIDED WEAKNESS PRESENT AT THIS TIME. DENIES ANY NEEDS. CALL LIGHT IN REACH. WILL CONTINUE POC AND SAFETY PRECAUTIONS.
[2021-02-06] MEDS ORDERED: VITAMIN E1000 UNI1 PO (11:22)
[2021-02-06] MEDS ORDERED: VITAMIN D-40010 MCG PO (11:22)
[2021-02-07] VITALS: BP 125/64
--- NOTE | 2021-02-07 01:38 | NUR ---
2000-PT IN BED WATCHING TV. WANTS BOTH OF HER IV'S REMOVED. EDUCATED THAT SHE HAS TO HAVE SOME SORT OF ACCESS UNTIL SHE LEAVES. VERBALIZES UNDERSTANDING. IV REMOVED FROM LEFT AC.
[2021-02-07 04:00] VITALS: BP 133/66
--- NOTE | 2021-02-07 05:57 | NUR ---
PT HAS RESTED QUIETLY ALL NIGHT LONG. NO C/O VOICED. JUST WANTS TO GO HOME
[2021-02-07 06:15] LABS: BASOPHILS 0.2 % (0-2); EOSINOPHILS 2.2 % (0-7); HEMATOCRIT 38.3 % (36.0-48.0); HEMOGLOBIN 12.5 g/dL (12-16); IMMATURE GRANULOCYTES 0.3 % (0-5); LYMPHOCYTE ABS# 1.38 10x3/uL (1.18-3.74); LYMPHOCYTES 21.8 % (15-50); MCH 33.5 pg (26.0-34.0); MCHC 32.6 g/dL (31.0-37.0); MCV 102.7 fL (80.0-100.0); MEAN PLATELET VOLUME 10.6 fL (7.4-10.4); MONOCYTES 13.3 % (2-11); NEUTROPHIL ABS# 3.93 10x3/uL (1.56-6.13); NEUTROPHILS 62.2 % (40-80); PLATELET COUNT 251 10x3/uL (130-400); RBC 3.73 10x6/uL (4.00-5.40); RDW 13.3 % (11.5-14.5); WBC 6.3 10x3/uL (4.8-10.8)
[2021-02-07 06:37] LABS: ANION GAP 10.3 mmol/L (8-16); BILIRUBIN - TOTAL 0.29 mg/dL (0.2-1.3); CALCIUM 9.1 mg/dL (8.5-10.1); CARBON DIOXIDE 29.9 mmol/L (21.0-32.0); CREATININE - SERUM 0.8 mg/dL (0.6-1.3); MAGNESIUM - SERUM 1.8 mg/dL (1.8-2.4); POTASSIUM - SERUM 3.2 mmol/L (3.5-5.1)
[2021-02-07 08:09] VITALS: BP 152/69
[2021-02-07] MEDS ORDERED: ASPIRIN325 MG PO (08:54)
--- NOTE | 2021-02-07 10:43 | NUR ---
STUDENT NURSE D/C RIGHT FOREARM IV, TIP INTACT. DISHCARGE INSTRUCTIONS GIVEN VERBALLY AND HANDOUTS PROVIDED. CALLED FOR PICKUP.
--- NOTE | 2021-02-07 11:15 | NUR ---
TAKEN DOWN TO MAIN ENTRANCE VIA WHEELCHAIR. REMAINS FREE FROM INJURY.
--- NOTE | 2021-02-07 14:24 | NUR ---
PATIENT WALKED 250 FEET WITH WALKER.
--- NOTE | 2021-02-07 16:06 | NUR ---
OT NOTE: PT COMPLETED SUPINE TO SIT WITH SPV. PT COMPLETED ADL MOB WITH SBA TO TOILET. PT COMPLETED TOILETING WITH SPV-SBA. PT COMPLETED TOILET HYGIENE WITH SPV-SBA. [phone] [facility] [place] [facility]
== END 2021-02-07 11:15 | disposition home or self-care (01) ==
LOC: D.ER 06:34 → D.M2 07:59 → OBSVTIME 07:59 → D.M2 02-07 11:15
PROVIDERS: Family Medicine; ADMIT Family Medicine; ATTEND Family Medicine
DX: G45.9 Transient cerebral ischemic attack, unspecified (principal); E78.5 Hyperlipidemia, unspecified; I10 Essential (primary) hypertension; G89.29 Other chronic pain; M19.90 Unspecified osteoarthritis, unspecified site